=== PATIENT | male | born 1980 | race African-American/Black ===

== ENCOUNTER 2020-10-23 11:39 | Inpatient (IN) | payer OTHER ==
[2020-10-23 13:15] VITALS: BMI 25.7
[2020-10-23] MEDS ORDERED: ACETAMINOPHEN 325 MG TABLET (FP) PO PRN (17:55)
[2020-10-23] MEDS ORDERED: MAGNESIUM CITRATE 300 ML BOTTLE PO PRN (17:55)
[2020-10-23] MEDS ORDERED: LOPERAMIDE HCL 2 MG CAPSULE PO PRN (17:55)
[2020-10-23] MEDS ORDERED: IBUPROFEN 400 MG TABLET (FP) PO PRN (17:55)
[2020-10-23] MEDS ORDERED: P-EPHED 60MG/TRIPROLIDI 2.5MG TABLET PO PRN (17:55)
[2020-10-23] MEDS ORDERED: NICOTINE POLACRILEX 2 MG GUM BC PRN (17:55)
[2020-10-23] MEDS ORDERED: MAGNESIUM HYDROX 2400MG/30ML ORAL SUSPENSION 30 ML CUP PO PRN (17:55)
[2020-10-23] MEDS ORDERED: guaiFENesin 200 MG/10 ML 10 ML UNIT-DOSE CUPS PO PRN (17:55)
[2020-10-23] MEDS ORDERED: MAG HYDROX/AL HYDROX/SIMETH 30 ML UNIT-DOSE CUP PO PRN (17:55)
[2020-10-23] MEDS: MELATONIN 5 MG TABLETS PO SCH (22:14)
[2020-10-23] MEDS: ALBUTEROL SO4 HFA INHALER IH SCH (22:14)
[2020-10-23] MEDS: THIAMINE HCL 100 MG TABLET (FP) PO SCH (22:14)
[2020-10-24] MEDS: ALBUTEROL SO4 HFA INHALER IH SCH ×3 (03:30→15:07)
[2020-10-24] MEDS ORDERED: METHADONE HCL 40 MG DISPERSABLE TABLET PO ONE (08:55)
[2020-10-24] MEDS: PRENATAL VITAMINS W/ FOLIC ACID TABLET (FP) PO SCH (09:15)
[2020-10-24] MEDS: NICOTINE 14 MG/24 HOURS TOPICAL PATCH TD SCH (09:15)
[2020-10-24 09:32] LABS: HEMATOCRIT 37.2 % (35.4-49); HEMOGLOBIN 12.1 GM/dL (11.7-16.9); MCH 25.9 pg (25.7-33.7); MCHC 32.6 g/dl (32.0-35.9); MEAN CELL VOLUME 79.5 fl (80-96); MEAN PLT VOLUME 8.1 fl (7.5-11.1); PLATELET COUNT 328 K/MM3 (134-434); RBC 4.68 M/mm3 (4.00-5.60); WHITE BLOOD COUNT 5.3 K/mm3 (4.0-10.0)
[2020-10-24 10:02] LABS: BLOOD UREA NITROGEN 14.9 mg/dL (7-18)
[2020-10-24 10:05] LABS: ALBUMIN 3.6 g/dl (3.4-5.0); CALCIUM 9.3 mg/dL (8.5-10.1)
[2020-10-24 10:08] LABS: BILIRUBIN,TOTAL 0.2 mg/dL (0.2-1); CREATININE 1.1 mg/dL (0.55-1.3)
[2020-10-24 10:12] LABS: TOT PROT 7.5 g/dl (6.4-8.2)
[2020-10-24] MEDS ORDERED: hydrOXYzine PAMOATE 25 MG CAPSULE (FP) PO PRN (15:04)
[2020-10-24] MEDS: THIAMINE HCL 100 MG TABLET (FP) PO SCH (21:55)
[2020-10-24] MEDS: MELATONIN 5 MG TABLETS PO SCH (21:55)
[2020-10-25] MEDS: METHADONE HCL 40 MG DISPERSABLE TABLET PO SCH (06:44)
[2020-10-25] MEDS: PRENATAL VITAMINS W/ FOLIC ACID TABLET (FP) PO SCH (09:38)
[2020-10-25] MEDS: NICOTINE 14 MG/24 HOURS TOPICAL PATCH TD SCH (09:38)
[2020-10-25] MEDS: ALBUTEROL SO4 HFA INHALER IH PRN (14:07)
[2020-10-25] MEDS: busPIRone HCL 5 MG TABLET PO SCH ×2 (14:07→21:09)
[2020-10-25 16:49] LABS: PH,URINE 6.5 (5.0-8.0); URINE APPEARANCE CLEAR; URINE BILIRUBIN NEGATIVE (NEGATIVE); URINE COLOR YELLOW; URINE GLUCOSE (UA) NEGATIVE (NEGATIVE); URINE KETONE NEGATIVE (NEGATIVE); URINE LEUK ESTERASE NEGATIVE (NEGATIVE); URINE NITRITE NEGATIVE (NEGATIVE); URINE PROTEIN NEGATIVE (NEGATIVE)
[2020-10-25] MEDS: hydrOXYzine PAMOATE 25 MG CAPSULE (FP) PO PRN (17:23)
[2020-10-25] MEDS: traZODone HCL 50 MG TABLET (FP) PO SCH (21:09)
[2020-10-25] MEDS: THIAMINE HCL 100 MG TABLET (FP) PO SCH (21:09)
[2020-10-26] MEDS: METHADONE HCL 40 MG DISPERSABLE TABLET PO SCH (07:06)
[2020-10-26] MEDS: busPIRone HCL 5 MG TABLET PO SCH ×3 (07:06→21:16)
[2020-10-26] MEDS: NICOTINE 14 MG/24 HOURS TOPICAL PATCH TD SCH (10:20)
[2020-10-26] MEDS: PRENATAL VITAMINS W/ FOLIC ACID TABLET (FP) PO SCH (10:20)
[2020-10-26] MEDS: ALBUTEROL SO4 HFA INHALER IH PRN (12:40)
[2020-10-26] MEDS: hydrOXYzine PAMOATE 25 MG CAPSULE (FP) PO PRN (21:16)
[2020-10-26] MEDS: traZODone HCL 50 MG TABLET (FP) PO SCH (21:16)
[2020-10-26] MEDS: THIAMINE HCL 100 MG TABLET (FP) PO SCH (21:16)
[2020-10-27] MEDS: ALBUTEROL SO4 HFA INHALER IH PRN (06:55)
[2020-10-27] MEDS: METHADONE HCL 40 MG DISPERSABLE TABLET PO SCH (06:55)
[2020-10-27] MEDS: busPIRone HCL 5 MG TABLET PO SCH (06:56)
[2020-10-27 07:02] VITALS: BP 117/75; PULSE 66; TEMP 97.5
[2020-10-27] MEDS: PRENATAL VITAMINS W/ FOLIC ACID TABLET (FP) PO SCH (09:27)
[2020-10-27] MEDS: NICOTINE 14 MG/24 HOURS TOPICAL PATCH TD SCH (09:28)
[2020-10-27] MEDS: hydrOXYzine PAMOATE 25 MG CAPSULE (FP) PO PRN (09:28)
== END 2020-10-27 13:45 | disposition left against medical advice (07) | DRG 770 ==
LOC: YASAS 11:39 → Y5N 18:18
PROVIDERS: ADMIT Allergy & Immunology; ATTEND Allergy & Immunology
PROC: HZ42ZZZ Group Counseling for Substance Abuse Treatment, Cognitive-Behavioral (ICD-10-PCS; principal; 2020-10-23)
DX: F10.20 Alcohol dependence, uncomplicated (principal); F11.20 Opioid dependence, uncomplicated; F14.20 Cocaine dependence, uncomplicated; F12.20 Cannabis dependence, uncomplicated; F13.10 Sedative, hypnotic or anxiolytic abuse, uncomplicated; F17.210 Nicotine dependence, cigarettes, uncomplicated; F19.282 Other psychoactive substance dependence with psychoactive substance-induced sleep disorder; F19.24 Other psychoactive substance dependence with psychoactive substance-induced mood disorder; J45.20 Mild intermittent asthma, uncomplicated; Z91.5 Personal history of self-harm; Z56.0 Unemployment, unspecified
CPT/HCPCS: 36415; 80053; 81003; 85027; 86780; 93005; 93010; C9803; U0003; U0005

== ENCOUNTER 2020-12-15 08:47 | Inpatient (IN) | payer OTHER ==
[2020-12-15 09:33] VITALS: BMI 22.6
[2020-12-15] MEDS ORDERED: IBUPROFEN 400 MG TABLET (FP) PO PRN (10:55)
[2020-12-15] MEDS ORDERED: NICOTINE POLACRILEX 2 MG GUM BUC PRN (10:55)
[2020-12-15] MEDS ORDERED: BISMUTH SUBSALICYLATE 262 MG/15 ML BTL PO PRN (10:55)
[2020-12-15] MEDS ORDERED: cloNIDine HCL 0.1 MG TABLET PO PRN (10:55)
[2020-12-15] MEDS ORDERED: MAG HYDROX/AL HYDROX/SIMETH 30 ML UNIT-DOSE CUP PO PRN (10:55)
[2020-12-15] MEDS ORDERED: METHADONE HCL 10 MG TABLET (FOR DETOX USE ONLY) PO ONE (10:55)
[2020-12-15] MEDS ORDERED: ACETAMINOPHEN 325 MG TABLET (FP) PO PRN ×2 (10:55)
[2020-12-15] MEDS ORDERED: MENTHOL/PHENOL 1 EACH UD MM PRN (10:55)
[2020-12-15] MEDS ORDERED: MAGNESIUM HYDROX 2400MG/30ML ORAL SUSPENSION 30 ML CUP PO PRN (10:55)
[2020-12-15] MEDS ORDERED: MAGNESIUM CITRATE 300 ML BOTTLE PO PRN (10:55)
[2020-12-15] MEDS ORDERED: ONDANSETRON *ODT* 4 MG TABLET SL PRN (10:55)
[2020-12-15] MEDS: NICOTINE 7 MG/24 HOURS TOPICAL PATCH TD SCH (13:22)
[2020-12-15] MEDS: PRENATAL VITAMINS W/ FOLIC ACID TABLET (FP) PO SCH (13:23)
[2020-12-15] MEDS: ALBUTEROL SO4 HFA INHALER IH SCH ×3 (13:23→22:35)
[2020-12-15] MEDS: hydrOXYzine PAMOATE 25 MG CAPSULE (FP) PO SCH ×3 (13:28→22:35)
[2020-12-15] MEDS ORDERED: MELATONIN 5 MG TABLETS PO SCH (22:00)
[2020-12-15] MEDS: QUEtiapine FUMARATE 50 MG TABLET PO SCH (22:35)
[2020-12-15] MEDS: THIAMINE HCL 100 MG TABLET (FP) PO SCH (22:35)
[2020-12-16] MEDS: ALBUTEROL SO4 HFA INHALER IH SCH ×4 (05:56→23:59)
[2020-12-16] MEDS: hydrOXYzine PAMOATE 25 MG CAPSULE (FP) PO SCH ×4 (05:57→18:05)
[2020-12-16] MEDS ORDERED: METHADONE HCL 5 MG TABLET (FOR DETOX USE ONLY) ONE (09:22)
[2020-12-16] MEDS ORDERED: METHADONE HCL 10 MG TABLET (FOR DETOX USE ONLY) ONE (09:23)
[2020-12-16] MEDS ORDERED: METHADONE (DETOX) 20 MG, METHADONE (DETOX) 5 MG PO ONE (10:00)
[2020-12-16] MEDS: PRENATAL VITAMINS W/ FOLIC ACID TABLET (FP) PO SCH (10:52)
[2020-12-16] MEDS: NICOTINE 7 MG/24 HOURS TOPICAL PATCH TD SCH (10:53)
[2020-12-16] MEDS: METHOCARBAMOL 500 MG TABLET PO PRN (18:04)
[2020-12-16] MEDS: QUEtiapine FUMARATE 50 MG TABLET PO SCH (23:59)
[2020-12-17] MEDS: THIAMINE HCL 100 MG TABLET (FP) PO SCH
[2020-12-17] MEDS: ALBUTEROL SO4 HFA INHALER IH SCH ×3 (06:44→17:11)
[2020-12-17] MEDS: hydrOXYzine PAMOATE 25 MG CAPSULE (FP) PO SCH ×5 (06:44→17:11)
[2020-12-17] MEDS ORDERED: METHADONE HCL 10 MG TABLET (FOR DETOX USE ONLY) PO ONE (10:00)
[2020-12-17] MEDS: PRENATAL VITAMINS W/ FOLIC ACID TABLET (FP) PO SCH (10:11)
[2020-12-17] MEDS: NICOTINE 7 MG/24 HOURS TOPICAL PATCH TD SCH (10:12)
[2020-12-17] MEDS: METHOCARBAMOL 500 MG TABLET PO PRN (10:13)
[2020-12-17] MEDS: GABAPENTIN 100 MG CAPSULE PO SCH (15:39)
[2020-12-18] MEDS: THIAMINE HCL 100 MG TABLET (FP) PO SCH ×2 (00:05→22:54)
[2020-12-18] MEDS: hydrOXYzine PAMOATE 25 MG CAPSULE (FP) PO SCH ×6 (00:05→22:54)
[2020-12-18] MEDS: ALBUTEROL SO4 HFA INHALER IH SCH ×5 (00:05→23:13)
[2020-12-18] MEDS: QUEtiapine FUMARATE 50 MG TABLET PO SCH ×2 (00:05→22:54)
[2020-12-18] MEDS: METHOCARBAMOL 500 MG TABLET PO PRN ×3 (01:34→22:57)
[2020-12-18] MEDS ORDERED: METHADONE HCL 10 MG TABLET (FOR DETOX USE ONLY) ONE (09:02)
[2020-12-18] MEDS ORDERED: METHADONE HCL 5 MG TABLET (FOR DETOX USE ONLY) ONE (09:02)
[2020-12-18] MEDS ORDERED: METHADONE (DETOX) 10 MG, METHADONE (DETOX) 5 MG PO ONE (10:00)
[2020-12-18] MEDS: PRENATAL VITAMINS W/ FOLIC ACID TABLET (FP) PO SCH (10:27)
[2020-12-18] MEDS: BACITRACIN 0.9 GM PACKET TP SCH (10:27)
[2020-12-18] MEDS: GABAPENTIN 100 MG CAPSULE PO SCH ×2 (10:27→15:22)
[2020-12-18] MEDS: NICOTINE 7 MG/24 HOURS TOPICAL PATCH TD SCH (10:31)
[2020-12-18] MEDS: VITAMINS A AND D TOPICAL OINTMENT 60 GM TUBE TP SCH (15:22)
[2020-12-18] MEDS: CLOTRIMAZOLE 1% CREAM 15 GM TUBE TP SCH (22:55)
[2020-12-19] MEDS: ALBUTEROL SO4 HFA INHALER IH SCH ×4 (07:01→22:35)
[2020-12-19] MEDS: hydrOXYzine PAMOATE 25 MG CAPSULE (FP) PO SCH ×5 (07:01→22:34)
[2020-12-19] MEDS ORDERED: METHADONE HCL 10 MG TABLET (FOR DETOX USE ONLY) PO ONE (10:00)
[2020-12-19] MEDS: NICOTINE 7 MG/24 HOURS TOPICAL PATCH TD SCH (10:07)
[2020-12-19] MEDS: BACITRACIN 0.9 GM PACKET TP SCH (10:07)
[2020-12-19] MEDS: GABAPENTIN 100 MG CAPSULE PO SCH ×2 (10:07→17:34)
[2020-12-19] MEDS: CLOTRIMAZOLE 1% CREAM 15 GM TUBE TP SCH ×2 (10:08→22:35)
[2020-12-19] MEDS: VITAMINS A AND D TOPICAL OINTMENT 60 GM TUBE TP SCH (10:08)
[2020-12-19] MEDS: PRENATAL VITAMINS W/ FOLIC ACID TABLET (FP) PO SCH (10:09)
[2020-12-19] MEDS: METHOCARBAMOL 500 MG TABLET PO PRN ×2 (10:10→22:35)
[2020-12-19 11:38] LABS: HEMATOCRIT 40.7 % (35.4-49); HEMOGLOBIN 13.4 GM/dL (11.7-16.9); MCHC 32.8 g/dl (32.0-35.9); MEAN CELL VOLUME 79.2 fl (80-96); MEAN PLT VOLUME 7.1 fl (7.5-11.1); PLATELET COUNT 473 K/MM3 (134-434); RBC 5.14 M/mm3 (4.00-5.60); RDW 14.3 % (11.9-15.9); WHITE BLOOD COUNT 4.5 K/mm3 (4.0-10.0)
[2020-12-19] MEDS: THIAMINE HCL 100 MG TABLET (FP) PO SCH (22:34)
[2020-12-19] MEDS: QUEtiapine FUMARATE 50 MG TABLET PO SCH (22:35)
[2020-12-20 00:12] LABS: ALBUMIN 3.9 g/dl (3.4-5.0); BLOOD UREA NITROGEN 13.2 mg/dL (7-18); CALCIUM 9.8 mg/dL (8.5-10.1)
[2020-12-20 00:16] LABS: CREATININE 1.1 mg/dL (0.55-1.3)
[2020-12-20 00:17] LABS: BILIRUBIN,TOTAL 0.2 mg/dL (0.2-1); TOT PROT 7.8 g/dl (6.4-8.2)
[2020-12-20] MEDS: hydrOXYzine PAMOATE 25 MG CAPSULE (FP) PO SCH ×2 (06:18→06:43)
[2020-12-20] MEDS: METHADONE HCL 5 MG TABLET (FOR DETOX USE ONLY) PO ONE ×3 (06:18→07:34)
[2020-12-20] MEDS: ALBUTEROL SO4 HFA INHALER IH SCH (06:18)
[2020-12-20] MEDS: METHOCARBAMOL 500 MG TABLET PO PRN (06:48)
[2020-12-20 09:40] VITALS: BP 118/71; PULSE 92; TEMP 97.3
== END 2020-12-20 09:40 | disposition other institution (70) | DRG 773 ==
LOC: YASAS 08:47 → Y6N 12:13
PROVIDERS: ADMIT Allergy & Immunology; ATTEND Allergy & Immunology
PROC: HZ2ZZZZ Detoxification Services for Substance Abuse Treatment (ICD-10-PCS; principal; 2020-12-15)
DX: F11.23 Opioid dependence with withdrawal (principal); F10.230 Alcohol dependence with withdrawal, uncomplicated; F14.20 Cocaine dependence, uncomplicated; F12.20 Cannabis dependence, uncomplicated; F17.210 Nicotine dependence, cigarettes, uncomplicated; F19.282 Other psychoactive substance dependence with psychoactive substance-induced sleep disorder; F19.280 Other psychoactive substance dependence with psychoactive substance-induced anxiety disorder; F19.24 Other psychoactive substance dependence with psychoactive substance-induced mood disorder; J45.20 Mild intermittent asthma, uncomplicated; S01.01XD Laceration without foreign body of scalp, subsequent encounter; T81.30XD Disruption of wound, unspecified, subsequent encounter; W19.XXXD Unspecified fall, subsequent encounter; Z91.5 Personal history of self-harm; Z59.0 Homelessness
CPT/HCPCS: 36415; 80053; 85027; 86780; C9803; U0003; U0005

== ENCOUNTER 2020-12-17 21:20 | Emergency (ER) | payer OTHER ==
[2020-12-17 21:40] VITALS: BP 138/77; PULSE 83; TEMP 98.6; BMI 23.6
[2020-12-17] MEDS ORDERED: BACITRACIN 15 GM TUBE TOPICAL OINTMENT TP ONE (22:36)
[2020-12-17] MEDS ORDERED: BACITRACIN 0.9 GM PACKET ONE (22:45)
== END 2020-12-18 01:00 ==
LOC: JER 21:20
DX: T81.31XA Disruption of external operation (surgical) wound, not elsewhere classified, initial encounter (principal)
CPT/HCPCS: 99283-25

== ENCOUNTER 2021-01-19 11:54 | Inpatient (IN) | payer OTHER ==
[2021-01-19 14:34] VITALS: BMI 24.7
[2021-01-19] MEDS ORDERED: MAG HYDROX/AL HYDROX/SIMETH 30 ML UNIT-DOSE CUP PO PRN (18:15)
[2021-01-19] MEDS ORDERED: LOPERAMIDE HCL 2 MG CAPSULE PO PRN (18:15)
[2021-01-19] MEDS ORDERED: P-EPHED 60MG/TRIPROLIDI 2.5MG TABLET PO PRN (18:15)
[2021-01-19] MEDS ORDERED: MAGNESIUM HYDROX 2400MG/30ML ORAL SUSPENSION 30 ML CUP PO PRN (18:15)
[2021-01-19] MEDS ORDERED: guaiFENesin 200 MG/10 ML 10 ML UNIT-DOSE CUPS PO PRN (18:15)
[2021-01-19] MEDS ORDERED: NICOTINE POLACRILEX 2 MG GUM BC PRN (18:15)
[2021-01-19] MEDS ORDERED: MAGNESIUM CITRATE 300 ML BOTTLE PO PRN (18:15)
[2021-01-19] MEDS ORDERED: ALBUTEROL SO4 HFA INHALER IH PRN (18:17)
[2021-01-19] MEDS: NICOTINE 7 MG/24 HOURS TOPICAL PATCH TD SCH (19:32)
[2021-01-19] MEDS: PRENATAL VITAMINS W/ FOLIC ACID TABLET (FP) PO SCH (19:35)
[2021-01-19] MEDS: BACITRACIN 15 GM TUBE TOPICAL OINTMENT TP SCH (21:54)
[2021-01-19] MEDS: BUPRENORPHINE/NALOXONE 4 MG/1 MG FILM PACKET SL SCH ×3 (21:55→22:28)
[2021-01-19] MEDS: THIAMINE HCL 100 MG TABLET (FP) PO SCH (22:12)
[2021-01-19] MEDS: hydrOXYzine PAMOATE 25 MG CAPSULE (FP) PO SCH (22:12)
[2021-01-19] MEDS: MELATONIN 5 MG TABLETS PO SCH (22:30)
[2021-01-20] MEDS: hydrOXYzine PAMOATE 25 MG CAPSULE (FP) PO SCH ×5 (07:14→21:50)
[2021-01-20 08:56] LABS: HEMATOCRIT 39.9 % (35.4-49); HEMOGLOBIN 13.1 GM/dL (11.7-16.9); MCH 25.6 pg (25.7-33.7); MCHC 32.7 g/dl (32.0-35.9); MEAN CELL VOLUME 78.1 fl (80-96); MEAN PLT VOLUME 6.7 fl (7.5-11.1); PLATELET COUNT 401 10^3/uL (134-434); RDW 15.3 % (11.9-15.9); WHITE BLOOD COUNT 5.9 K/mm3 (4.0-10.0)
[2021-01-20 09:25] LABS: BLOOD UREA NITROGEN 12.8 mg/dL (7-18); CALCIUM 9.3 mg/dL (8.5-10.1)
[2021-01-20 09:26] LABS: ALBUMIN 3.9 g/dl (3.4-5.0)
[2021-01-20 09:30] LABS: BILIRUBIN,TOTAL 0.6 mg/dL (0.2-1); TOT PROT 7.6 g/dl (6.4-8.2)
[2021-01-20] MEDS: PRENATAL VITAMINS W/ FOLIC ACID TABLET (FP) PO SCH (09:30)
[2021-01-20] MEDS: BUPRENORPHINE/NALOXONE 4 MG/1 MG FILM PACKET SL SCH ×2 (09:32→22:02)
[2021-01-20] MEDS: NICOTINE 7 MG/24 HOURS TOPICAL PATCH TD SCH (09:32)
[2021-01-20] MEDS: BACITRACIN 15 GM TUBE TOPICAL OINTMENT TP SCH (09:32)
[2021-01-20 10:13] LABS: HIV INTERPRETATION NEGATIVE (NEGATIVE)
[2021-01-20] MEDS: MELATONIN 5 MG TABLETS PO SCH (21:50)
[2021-01-20] MEDS: THIAMINE HCL 100 MG TABLET (FP) PO SCH (21:51)
[2021-01-20] MEDS: ACETAMINOPHEN 325 MG TABLET (FP) PO PRN (21:53)
[2021-01-21] MEDS: hydrOXYzine PAMOATE 25 MG CAPSULE (FP) PO SCH ×5 (06:29→21:22)
[2021-01-21] MEDS: PRENATAL VITAMINS W/ FOLIC ACID TABLET (FP) PO SCH (10:01)
[2021-01-21] MEDS: NICOTINE 7 MG/24 HOURS TOPICAL PATCH TD SCH (10:01)
[2021-01-21] MEDS: BUPRENORPHINE/NALOXONE 4 MG/1 MG FILM PACKET SL SCH ×2 (10:02→21:24)
[2021-01-21] MEDS: BACITRACIN 15 GM TUBE TOPICAL OINTMENT TP SCH (10:02)
[2021-01-21] MEDS ORDERED: MASKS NR ONE (16:19)
[2021-01-21] MEDS: MELATONIN 5 MG TABLETS PO SCH (21:22)
[2021-01-21] MEDS: THIAMINE HCL 100 MG TABLET (FP) PO SCH (21:22)
[2021-01-22] MEDS: hydrOXYzine PAMOATE 25 MG CAPSULE (FP) PO SCH ×5 (06:22→23:09)
[2021-01-22] MEDS: PRENATAL VITAMINS W/ FOLIC ACID TABLET (FP) PO SCH (09:55)
[2021-01-22] MEDS: BACITRACIN 15 GM TUBE TOPICAL OINTMENT TP SCH (09:56)
[2021-01-22] MEDS: NICOTINE 7 MG/24 HOURS TOPICAL PATCH TD SCH (09:57)
[2021-01-22] MEDS: BUPRENORPHINE/NALOXONE 4 MG/1 MG FILM PACKET SL SCH ×2 (09:57→23:09)
[2021-01-22] MEDS: THIAMINE HCL 100 MG TABLET (FP) PO SCH (23:09)
[2021-01-22] MEDS: MELATONIN 5 MG TABLETS PO SCH (23:09)
[2021-01-23] MEDS: hydrOXYzine PAMOATE 25 MG CAPSULE (FP) PO SCH ×5 (06:00→21:27)
[2021-01-23] MEDS: PRENATAL VITAMINS W/ FOLIC ACID TABLET (FP) PO SCH (10:01)
[2021-01-23] MEDS: NICOTINE 7 MG/24 HOURS TOPICAL PATCH TD SCH (10:01)
[2021-01-23] MEDS: BUPRENORPHINE/NALOXONE 4 MG/1 MG FILM PACKET SL SCH ×2 (10:02→21:25)
[2021-01-23] MEDS: BACITRACIN 15 GM TUBE TOPICAL OINTMENT TP SCH (10:03)
[2021-01-23] MEDS: QUEtiapine FUMARATE 100 MG TABLET (FP) PO SCH (21:27)
[2021-01-23] MEDS: THIAMINE HCL 100 MG TABLET (FP) PO SCH (21:27)
[2021-01-23] MEDS: MELATONIN 5 MG TABLETS PO SCH (21:27)
[2021-01-24] MEDS: hydrOXYzine PAMOATE 25 MG CAPSULE (FP) PO SCH ×2 (07:10→10:23)
[2021-01-24] MEDS: PRENATAL VITAMINS W/ FOLIC ACID TABLET (FP) PO SCH (10:17)
[2021-01-24] MEDS: NICOTINE 7 MG/24 HOURS TOPICAL PATCH TD SCH (10:17)
[2021-01-24] MEDS: BACITRACIN 0.9 GM PACKET TP SCH (10:19)
[2021-01-24] MEDS: BUPRENORPHINE/NALOXONE 4 MG/1 MG FILM PACKET SL SCH ×2 (10:20→21:29)
[2021-01-24] MEDS: hydrOXYzine PAMOATE 25 MG CAPSULE (FP) PO PRN ×2 (13:58→21:28)
[2021-01-24 17:03] LABS: PH,URINE 5.5 (5.0-8.0); URINE APPEARANCE CLEAR; URINE BILIRUBIN NEGATIVE (NEGATIVE); URINE COLOR YELLOW; URINE GLUCOSE (UA) NEGATIVE (NEGATIVE); URINE KETONE TRACE (NEGATIVE); URINE LEUK ESTERASE NEGATIVE (NEGATIVE); URINE NITRITE NEGATIVE (NEGATIVE); URINE PROTEIN NEGATIVE (NEGATIVE); URINE UROBILINOGEN 0.2 mg/dL (0.2-1.0)
[2021-01-24] MEDS: QUEtiapine FUMARATE 100 MG TABLET (FP) PO SCH (21:27)
[2021-01-24] MEDS: THIAMINE HCL 100 MG TABLET (FP) PO SCH (21:28)
[2021-01-24] MEDS: MELATONIN 5 MG TABLETS PO SCH (21:29)
[2021-01-25] MEDS: IBUPROFEN 400 MG TABLET (FP) PO PRN (02:27)
[2021-01-25] MEDS: hydrOXYzine PAMOATE 25 MG CAPSULE (FP) PO PRN ×3 (06:25→21:56)
[2021-01-25] MEDS ORDERED: PT OWN MED DRAWER 7, Y5N ONE (09:44)
[2021-01-25] MEDS: BACITRACIN 0.9 GM PACKET TP SCH (10:16)
[2021-01-25] MEDS: PRENATAL VITAMINS W/ FOLIC ACID TABLET (FP) PO SCH (10:16)
[2021-01-25] MEDS: BUPRENORPHINE/NALOXONE 4 MG/1 MG FILM PACKET SL SCH ×2 (10:17→21:55)
[2021-01-25] MEDS: NICOTINE 7 MG/24 HOURS TOPICAL PATCH TD SCH (10:17)
[2021-01-25] MEDS: MELATONIN 5 MG TABLETS PO SCH (21:55)
[2021-01-25] MEDS: THIAMINE HCL 100 MG TABLET (FP) PO SCH (21:55)
[2021-01-25] MEDS: QUEtiapine FUMARATE 100 MG TABLET (FP) PO SCH (21:55)
[2021-01-26] MEDS: PRENATAL VITAMINS W/ FOLIC ACID TABLET (FP) PO SCH (10:15)
[2021-01-26] MEDS: NICOTINE 7 MG/24 HOURS TOPICAL PATCH TD SCH (10:16)
[2021-01-26] MEDS: BACITRACIN 0.9 GM PACKET TP SCH (10:16)
[2021-01-26] MEDS: BUPRENORPHINE/NALOXONE 4 MG/1 MG FILM PACKET SL SCH ×2 (10:16→22:08)
[2021-01-26] MEDS: hydrOXYzine PAMOATE 25 MG CAPSULE (FP) PO PRN ×3 (10:16→19:18)
[2021-01-26] MEDS: THIAMINE HCL 100 MG TABLET (FP) PO SCH (22:06)
[2021-01-26] MEDS: QUEtiapine FUMARATE 100 MG TABLET (FP) PO SCH (22:07)
[2021-01-26] MEDS: MELATONIN 5 MG TABLETS PO SCH (22:07)
[2021-01-27] MEDS: hydrOXYzine PAMOATE 25 MG CAPSULE (FP) PO PRN ×3 (06:34→21:25)
[2021-01-27] MEDS: BACITRACIN 0.9 GM PACKET TP SCH (09:57)
[2021-01-27] MEDS: PRENATAL VITAMINS W/ FOLIC ACID TABLET (FP) PO SCH (09:57)
[2021-01-27] MEDS: NICOTINE 7 MG/24 HOURS TOPICAL PATCH TD SCH (09:57)
[2021-01-27] MEDS: BUPRENORPHINE/NALOXONE 4 MG/1 MG FILM PACKET SL SCH ×2 (09:58→21:25)
[2021-01-27] MEDS: MELATONIN 5 MG TABLETS PO SCH (21:23)
[2021-01-27] MEDS: QUEtiapine FUMARATE 100 MG TABLET (FP) PO SCH (21:23)
[2021-01-27] MEDS: THIAMINE HCL 100 MG TABLET (FP) PO SCH (21:23)
[2021-01-28] MEDS: BACITRACIN 0.9 GM PACKET TP SCH (09:59)
[2021-01-28] MEDS: PRENATAL VITAMINS W/ FOLIC ACID TABLET (FP) PO SCH (09:59)
[2021-01-28] MEDS: NICOTINE 7 MG/24 HOURS TOPICAL PATCH TD SCH (09:59)
[2021-01-28] MEDS: BUPRENORPHINE/NALOXONE 4 MG/1 MG FILM PACKET SL SCH ×2 (10:00→21:25)
[2021-01-28] MEDS: hydrOXYzine PAMOATE 25 MG CAPSULE (FP) PO PRN ×2 (10:00→21:23)
[2021-01-28] MEDS: QUEtiapine FUMARATE 100 MG TABLET (FP) PO SCH (21:23)
[2021-01-28] MEDS: MELATONIN 5 MG TABLETS PO SCH (21:23)
[2021-01-28] MEDS: THIAMINE HCL 100 MG TABLET (FP) PO SCH (21:23)
[2021-01-28] MEDS: IBUPROFEN 400 MG TABLET (FP) PO PRN (21:24)
[2021-01-29] MEDS: NICOTINE 7 MG/24 HOURS TOPICAL PATCH TD SCH (10:22)
[2021-01-29] MEDS: BACITRACIN 0.9 GM PACKET TP SCH (10:22)
[2021-01-29] MEDS: PRENATAL VITAMINS W/ FOLIC ACID TABLET (FP) PO SCH (10:22)
[2021-01-29] MEDS: BUPRENORPHINE/NALOXONE 4 MG/1 MG FILM PACKET SL SCH ×2 (10:22→21:29)
[2021-01-29] MEDS: IBUPROFEN 400 MG TABLET (FP) PO PRN (10:24)
[2021-01-29] MEDS: hydrOXYzine PAMOATE 25 MG CAPSULE (FP) PO PRN ×2 (10:24→21:29)
[2021-01-29] MEDS: MELATONIN 5 MG TABLETS PO SCH (21:28)
[2021-01-29] MEDS: QUEtiapine FUMARATE 100 MG TABLET (FP) PO SCH (21:29)
[2021-01-29] MEDS: THIAMINE HCL 100 MG TABLET (FP) PO SCH (21:29)
[2021-01-30] MEDS: PRENATAL VITAMINS W/ FOLIC ACID TABLET (FP) PO SCH (10:03)
[2021-01-30] MEDS: BUPRENORPHINE/NALOXONE 4 MG/1 MG FILM PACKET SL SCH ×2 (10:03→21:29)
[2021-01-30] MEDS: NICOTINE 7 MG/24 HOURS TOPICAL PATCH TD SCH (10:03)
[2021-01-30] MEDS: BACITRACIN 0.9 GM PACKET TP SCH (10:04)
[2021-01-30] MEDS: hydrOXYzine PAMOATE 25 MG CAPSULE (FP) PO PRN ×3 (10:04→21:28)
[2021-01-30] MEDS: MELATONIN 5 MG TABLETS PO SCH (21:28)
[2021-01-30] MEDS: QUEtiapine FUMARATE 100 MG TABLET (FP) PO SCH (21:28)
[2021-01-30] MEDS: THIAMINE HCL 100 MG TABLET (FP) PO SCH (21:28)
[2021-01-31] MEDS: BACITRACIN 0.9 GM PACKET TP SCH (10:06)
[2021-01-31] MEDS: BUPRENORPHINE/NALOXONE 4 MG/1 MG FILM PACKET SL SCH ×2 (10:06→21:29)
[2021-01-31] MEDS: hydrOXYzine PAMOATE 25 MG CAPSULE (FP) PO PRN ×2 (10:06→21:29)
[2021-01-31] MEDS: PRENATAL VITAMINS W/ FOLIC ACID TABLET (FP) PO SCH (10:06)
[2021-01-31] MEDS: NICOTINE 7 MG/24 HOURS TOPICAL PATCH TD SCH (10:06)
[2021-01-31] MEDS: THIAMINE HCL 100 MG TABLET (FP) PO SCH (21:29)
[2021-01-31] MEDS: QUEtiapine FUMARATE 100 MG TABLET (FP) PO SCH (21:29)
[2021-01-31] MEDS: MELATONIN 5 MG TABLETS PO SCH (21:29)
[2021-02-01] MEDS: BACITRACIN 0.9 GM PACKET TP SCH (10:02)
[2021-02-01] MEDS: BUPRENORPHINE/NALOXONE 4 MG/1 MG FILM PACKET SL SCH ×2 (10:02→21:42)
[2021-02-01] MEDS: PRENATAL VITAMINS W/ FOLIC ACID TABLET (FP) PO SCH (10:02)
[2021-02-01] MEDS: NICOTINE 7 MG/24 HOURS TOPICAL PATCH TD SCH (10:02)
[2021-02-01] MEDS: hydrOXYzine PAMOATE 25 MG CAPSULE (FP) PO PRN ×2 (10:03→21:41)
[2021-02-01] MEDS: ACETAMINOPHEN 325 MG TABLET (FP) PO PRN (16:27)
[2021-02-01] MEDS: THIAMINE HCL 100 MG TABLET (FP) PO SCH (21:41)
[2021-02-01] MEDS: MELATONIN 5 MG TABLETS PO SCH (21:41)
[2021-02-01] MEDS: QUEtiapine FUMARATE 100 MG TABLET (FP) PO SCH (21:41)
[2021-02-02 07:43] VITALS: BP 125/81; PULSE 121; TEMP 96.2
[2021-02-02] MEDS: PRENATAL VITAMINS W/ FOLIC ACID TABLET (FP) PO SCH (09:32)
[2021-02-02] MEDS: BUPRENORPHINE/NALOXONE 4 MG/1 MG FILM PACKET SL SCH (09:32)
[2021-02-02] MEDS: BACITRACIN 0.9 GM PACKET TP SCH (09:32)
[2021-02-02] MEDS: NICOTINE 7 MG/24 HOURS TOPICAL PATCH TD SCH (09:32)
[2021-02-02] MEDS: hydrOXYzine PAMOATE 25 MG CAPSULE (FP) PO PRN (09:33)
== END 2021-02-02 10:05 | disposition home or self-care (01) | DRG 772 ==
LOC: YASAS 11:54 → Y5N 18:49
PROVIDERS: ADMIT Allergy & Immunology; ATTEND Allergy & Immunology
PROC: HZ42ZZZ Group Counseling for Substance Abuse Treatment, Cognitive-Behavioral (ICD-10-PCS; principal; 2021-01-19)
DX: F10.20 Alcohol dependence, uncomplicated (principal); F11.20 Opioid dependence, uncomplicated; F14.20 Cocaine dependence, uncomplicated; F12.20 Cannabis dependence, uncomplicated; F19.20 Other psychoactive substance dependence, uncomplicated; F17.210 Nicotine dependence, cigarettes, uncomplicated; F19.282 Other psychoactive substance dependence with psychoactive substance-induced sleep disorder; F19.280 Other psychoactive substance dependence with psychoactive substance-induced anxiety disorder; J45.909 Unspecified asthma, uncomplicated; Z51.81 Encounter for therapeutic drug level monitoring; Z56.0 Unemployment, unspecified; Z59.0 Homelessness
CPT/HCPCS: 36415; 80053; 81003; 85027; 86780; 87389; C9803; U0003; U0005

== ENCOUNTER 2022-08-10 15:25 | Inpatient (IN) | payer OTHER ==
[2022-08-10 16:32] VITALS: BMI 22.1
[2022-08-10] MEDS ORDERED: METHOCARBAMOL 500 MG TABLET PO PRN (17:03)
[2022-08-10] MEDS ORDERED: DICYCLOMINE HCL 10 MG CAPSULE PO PRN (17:03)
[2022-08-10] MEDS ORDERED: ONDANSETRON *ODT* 4 MG TABLET SL PRN (17:03)
[2022-08-10] MEDS ORDERED: LOPERAMIDE HCL 2 MG CAPSULE PO PRN (17:03)
[2022-08-10] MEDS ORDERED: POLYETHYLENE GLYCOL (HEALTHYLAX) 3350 17 GM PACKET PO PRN (17:03)
[2022-08-10] MEDS ORDERED: IBUPROFEN 400 MG TABLET (FP) PO PRN (17:03)
[2022-08-10] MEDS ORDERED: IBUPROFEN 600 MG TABLET (FP) PO PRN (17:03)
[2022-08-10] MEDS ORDERED: BENZOCAINE/MENTHOL (CHLORASEPTIC ) LOZENGE MM PRN (17:03)
[2022-08-10] MEDS ORDERED: NALOXONE HCL (KLOXXADO) 8 MG SPRAY NS PRN (17:03)
[2022-08-10] MEDS ORDERED: MAGNESIUM HYDROX 2400MG/30ML ORAL SUSPENSION 30 ML CUP PO PRN (17:03)
[2022-08-10] MEDS ORDERED: BISMUTH SUBSALICYLATE 524 MG/30 ML PO PRN (17:03)
[2022-08-10] MEDS ORDERED: ACETAMINOPHEN 325 MG TABLET (FP) PO PRN ×2 (17:03)
[2022-08-10] MEDS ORDERED: chlordiazePOXIDE HCL 25 MG CAPSULE PO PRN (17:03)
[2022-08-10] MEDS ORDERED: NICOTINE 10 MG CARTRIDGE (INHALER) IH PRN (17:03)
[2022-08-10] MEDS ORDERED: ALBUTEROL SO4 2.5/IPRATROPIUM 0.5 INH SOL 3 ML VIAL.NEB. NEB SCH (17:15)
[2022-08-10] MEDS ORDERED: ALBUTEROL SO4 2.5/IPRATROPIUM 0.5 INH SOL 3 ML VIAL.NEB. NEB ONE (18:01)
[2022-08-10] MEDS: chlordiazePOXIDE HCL 25 MG CAPSULE PO SCH (22:49)
[2022-08-10] MEDS: THIAMINE HCL 100 MG TABLET (FP) PO SCH (22:50)
[2022-08-10] MEDS: MELATONIN 5 MG TABLETS PO SCH (22:50)
[2022-08-10] MEDS: ALBUTEROL SO4 HFA INHALER IH PRN (23:02)
[2022-08-11] MEDS: ALBUTEROL SO4 2.5/IPRATROPIUM 0.5 INH SOL 3 ML VIAL.NEB. NEB PRN ×2 (02:00→08:51)
[2022-08-11] MEDS: chlordiazePOXIDE HCL 25 MG CAPSULE PO SCH ×4 (05:05→22:42)
[2022-08-11] MEDS ORDERED: methaDONE HCL 10 MG TABLET (FOR DETOX USE ONLY) PO ONE (08:46)
[2022-08-11] MEDS: MAG HYDROX/AL HYDROX/SIMETH 30 ML UNIT-DOSE CUP PO PRN ×2 (08:55→20:38)
[2022-08-11] MEDS ORDERED: methaDONE HCL 10 MG TABLET PO ONE (10:00)
[2022-08-11] MEDS ORDERED: predniSONE 20 MG TABLET (UD) PO ONE ×2 (10:00)
[2022-08-11] MEDS: NICOTINE 21 MG/24 HOURS TOPICAL PATCH TD SCH (10:33)
[2022-08-11] MEDS: PRENATAL VITAMINS W/ FOLIC ACID TABLET (FP) PO SCH (10:33)
[2022-08-11 11:54] LABS: HEMOGLOBIN 11.8 GM/dL (11.7-16.9); MCH 25.8 pg (25.7-33.7); MCHC 32.9 g/dl (32.0-35.9); MEAN CELL VOLUME 78.4 fl (80-96); MEAN PLT VOLUME 7.8 fl (7.5-11.1); PLATELET COUNT 333 10^3/uL (134-434); RBC 4.59 M/mm3 (4.00-5.60); RDW 14.6 % (11.9-15.9); WHITE BLOOD COUNT 8.6 K/mm3 (4.0-10.0)
[2022-08-11] MEDS ORDERED: FAMOTIDINE 20 MG TABLET PO ONE (12:00)
[2022-08-11 12:09] LABS: ALBUMIN 3.4 g/dl (3.4-5.0)
[2022-08-11 12:10] LABS: BLOOD UREA NITROGEN 20.3 mg/dL (7-18)
[2022-08-11 12:14] LABS: BILIRUBIN,TOTAL 0.2 mg/dL (0.2-1); TOT PROT 6.9 g/dl (6.4-8.2)
[2022-08-11] MEDS: ALBUTEROL SO4 HFA INHALER IH PRN (13:23)
[2022-08-11 13:26] LABS: HIV INTERPRETATION NEGATIVE (NEGATIVE)
[2022-08-11] MEDS: hydrOXYzine PAMOATE 25 MG CAPSULE (FP) PO PRN (17:38)
[2022-08-11] MEDS ORDERED: P-EPHED 60MG/TRIPROLIDI 2.5MG TABLET PO PRN (18:06)
[2022-08-11] MEDS: THIAMINE HCL 100 MG TABLET (FP) PO SCH (22:42)
[2022-08-11] MEDS: MELATONIN 5 MG TABLETS PO SCH ×2 (22:42→23:24)
[2022-08-11] MEDS: MONTELUKAST NA 10 MG TABLET PO SCH (22:44)
[2022-08-11] MEDS: FAMOTIDINE 20 MG TABLET PO SCH (22:44)
[2022-08-11] MEDS: BUDESONIDE/FORMETEROL FUMARATE 160/4.5 mcg INHALER IH SCH (22:45)
[2022-08-11] MEDS: FLUTICASONE PROP 0.05% 16 GM NASAL SPRAY NS SCH ×2 (22:45→23:00)
[2022-08-12] MEDS: chlordiazePOXIDE HCL 25 MG CAPSULE PO SCH ×4 (06:12→22:53)
[2022-08-12] MEDS ORDERED: predniSONE 20 MG TABLET (UD) PO ONE ×2 (10:00)
[2022-08-12] MEDS ORDERED: methaDONE HCL 10 MG TABLET PO ONE (10:34)
[2022-08-12] MEDS: FLUTICASONE PROP 0.05% 16 GM NASAL SPRAY NS SCH ×2 (11:36→22:53)
[2022-08-12] MEDS: FAMOTIDINE 20 MG TABLET PO SCH ×2 (11:36→22:54)
[2022-08-12] MEDS: BUDESONIDE/FORMETEROL FUMARATE 160/4.5 mcg INHALER IH SCH ×2 (11:36→22:54)
[2022-08-12] MEDS: PRENATAL VITAMINS W/ FOLIC ACID TABLET (FP) PO SCH (11:37)
[2022-08-12] MEDS: NICOTINE 21 MG/24 HOURS TOPICAL PATCH TD SCH (11:37)
[2022-08-12] MEDS ORDERED: methaDONE 40 MG, methaDONE 20 MG PO ONE (11:45)
[2022-08-12] MEDS: THIAMINE HCL 100 MG TABLET (FP) PO SCH (22:52)
[2022-08-12] MEDS: MONTELUKAST NA 10 MG TABLET PO SCH (22:52)
[2022-08-12] MEDS: MELATONIN 5 MG TABLETS PO SCH (22:54)
[2022-08-13] MEDS ORDERED: chlordiazePOXIDE HCL 10 MG CAPSULE PO PRN
[2022-08-13] MEDS: methaDONE 40 MG, methaDONE 20 MG PO SCH (05:44)
[2022-08-13] MEDS: chlordiazePOXIDE HCL 10 MG CAPSULE PO SCH ×4 (05:45→22:36)
[2022-08-13] MEDS ORDERED: methaDONE HCL 10 MG TABLET PO SCH (06:00)
[2022-08-13] MEDS ORDERED: predniSONE 10 MG TABLET (UD) PO ONE ×2 (10:00)
[2022-08-13] MEDS ORDERED: methaDONE HCL 10 MG TABLET (FOR DETOX USE ONLY) PO ONE (10:00)
[2022-08-13] MEDS: FLUTICASONE PROP 0.05% 16 GM NASAL SPRAY NS SCH ×2 (10:30→22:44)
[2022-08-13] MEDS: NICOTINE 21 MG/24 HOURS TOPICAL PATCH TD SCH (10:30)
[2022-08-13] MEDS: BUDESONIDE/FORMETEROL FUMARATE 160/4.5 mcg INHALER IH SCH ×2 (10:31→22:37)
[2022-08-13] MEDS: FAMOTIDINE 20 MG TABLET PO SCH ×2 (10:32→22:35)
[2022-08-13] MEDS: PRENATAL VITAMINS W/ FOLIC ACID TABLET (FP) PO SCH (10:33)
[2022-08-13] MEDS: THIAMINE HCL 100 MG TABLET (FP) PO SCH (22:35)
[2022-08-13] MEDS: MELATONIN 5 MG TABLETS PO SCH (22:35)
[2022-08-13] MEDS: MONTELUKAST NA 10 MG TABLET PO SCH (22:35)
[2022-08-13] MEDS: ALBUTEROL SO4 HFA INHALER IH PRN (22:44)
[2022-08-14] MEDS: methaDONE 40 MG, methaDONE 20 MG PO SCH (06:03)
[2022-08-14] MEDS: chlordiazePOXIDE HCL 10 MG CAPSULE PO SCH ×2 (06:03→17:11)
[2022-08-14] MEDS ORDERED: predniSONE 10 MG TABLET (UD) PO ONE (10:00)
[2022-08-14] MEDS: NICOTINE 21 MG/24 HOURS TOPICAL PATCH TD SCH (10:25)
[2022-08-14] MEDS: PRENATAL VITAMINS W/ FOLIC ACID TABLET (FP) PO SCH (10:25)
[2022-08-14] MEDS: FAMOTIDINE 20 MG TABLET PO SCH ×2 (10:25→22:48)
[2022-08-14] MEDS: FLUTICASONE PROP 0.05% 16 GM NASAL SPRAY NS SCH ×2 (10:25→23:10)
[2022-08-14] MEDS: BUDESONIDE/FORMETEROL FUMARATE 160/4.5 mcg INHALER IH SCH ×2 (10:25→22:49)
[2022-08-14] MEDS: hydrOXYzine PAMOATE 25 MG CAPSULE (FP) PO PRN (22:48)
[2022-08-14] MEDS: THIAMINE HCL 100 MG TABLET (FP) PO SCH (22:48)
[2022-08-14] MEDS: MONTELUKAST NA 10 MG TABLET PO SCH (22:48)
[2022-08-14] MEDS: MELATONIN 5 MG TABLETS PO SCH (22:48)
[2022-08-15] MEDS ORDERED: chlordiazePOXIDE HCL 10 MG CAPSULE PO ONE (05:00)
[2022-08-15] MEDS: methaDONE 40 MG, methaDONE 20 MG PO SCH (05:44)
[2022-08-15 09:25] VITALS: RESP 18
[2022-08-15] MEDS ORDERED: predniSONE 20 MG TABLET (UD) PO ONE (10:00)
[2022-08-15] MEDS ORDERED: methaDONE HCL 10 MG TABLET (FOR DETOX USE ONLY) PO ONE (10:00)
[2022-08-15] MEDS: FLUTICASONE PROP 0.05% 16 GM NASAL SPRAY NS SCH (10:23)
[2022-08-15] MEDS: NICOTINE 21 MG/24 HOURS TOPICAL PATCH TD SCH (10:24)
[2022-08-15] MEDS: hydrOXYzine PAMOATE 25 MG CAPSULE (FP) PO PRN (10:25)
[2022-08-15] MEDS: PRENATAL VITAMINS W/ FOLIC ACID TABLET (FP) PO SCH (10:25)
[2022-08-15] MEDS: FAMOTIDINE 20 MG TABLET PO SCH (10:25)
[2022-08-15] MEDS: BUDESONIDE/FORMETEROL FUMARATE 160/4.5 mcg INHALER IH SCH (11:06)
[2022-08-15 16:30] VITALS: BP 97/63; PULSE 79; TEMP 97.1
[2022-08-15] MEDS ORDERED: MIRTAZAPINE 15 MG TABLET (FP) PO SCH (22:00)
[2022-08-16] MEDS ORDERED: predniSONE 10 MG TABLET (UD) PO ONE (06:00)
== END 2022-08-15 16:55 | disposition other institution (70) | DRG 773 ==
LOC: YASAS 15:25 → Y6N 16:59
PROVIDERS: ADMIT Allergy & Immunology; ATTEND Family Medicine
PROC: HZ2ZZZZ Detoxification Services for Substance Abuse Treatment (ICD-10-PCS; principal; 2022-08-10)
DX: F10.230 Alcohol dependence with withdrawal, uncomplicated (principal); F11.20 Opioid dependence, uncomplicated; F14.20 Cocaine dependence, uncomplicated; F12.20 Cannabis dependence, uncomplicated; F17.210 Nicotine dependence, cigarettes, uncomplicated; F19.280 Other psychoactive substance dependence with psychoactive substance-induced anxiety disorder; F19.282 Other psychoactive substance dependence with psychoactive substance-induced sleep disorder; J45.909 Unspecified asthma, uncomplicated; K21.9 Gastro-esophageal reflux disease without esophagitis; Z91.51 Personal history of suicidal behavior
CPT/HCPCS: 36415; 80053; 85027; 86705; 86780; 87389; 87522; 94640; C9803-CS; U0003; U0005

== ENCOUNTER 2022-08-15 17:09 | Inpatient (IN) | payer OTHER ==
[2022-08-15] MEDS ORDERED: MAGNESIUM HYDROX 2400MG/30ML ORAL SUSPENSION 30 ML CUP PO PRN (18:12)
[2022-08-15] MEDS ORDERED: POLYETHYLENE GLYCOL (HEALTHYLAX) 3350 17 GM PACKET PO PRN (18:12)
[2022-08-15] MEDS ORDERED: P-EPHED 60MG/TRIPROLIDI 2.5MG TABLET PO PRN (18:12)
[2022-08-15] MEDS ORDERED: LOPERAMIDE HCL 2 MG CAPSULE PO PRN (18:12)
[2022-08-15] MEDS ORDERED: IBUPROFEN 400 MG TABLET (FP) PO PRN (18:12)
[2022-08-15] MEDS ORDERED: guaiFENesin 200 MG/10 ML 10 ML UNIT-DOSE CUPS PO PRN (18:12)
[2022-08-15] MEDS ORDERED: ACETAMINOPHEN 325 MG TABLET (FP) PO PRN (18:12)
[2022-08-15] MEDS ORDERED: BENZOCAINE/MENTHOL (CHLORASEPTIC ) LOZENGE MM PRN (18:12)
[2022-08-15] MEDS: MELATONIN 5 MG TABLETS PO SCH (23:18)
[2022-08-15] MEDS: MIRTAZAPINE 15 MG TABLET (FP) PO SCH (23:18)
[2022-08-15] MEDS: GABAPENTIN 100 MG CAPSULE PO SCH (23:18)
[2022-08-15] MEDS: THIAMINE HCL 100 MG TABLET (FP) PO SCH (23:19)
[2022-08-16] MEDS ORDERED: methaDONE HCL 10 MG TABLET PO SCH (06:00)
[2022-08-16] MEDS: methaDONE 40 MG, methaDONE 20 MG PO SCH (06:31)
[2022-08-16 07:26] VITALS: RESP 18
[2022-08-16] MEDS ORDERED: predniSONE 10 MG TABLET (UD) PO ONE (10:00)
[2022-08-16] MEDS: PRENATAL VITAMINS W/ FOLIC ACID TABLET (FP) PO SCH (10:27)
[2022-08-16] MEDS: NICOTINE 7 MG/24 HOURS TOPICAL PATCH TD SCH (10:27)
[2022-08-16] MEDS: GABAPENTIN 100 MG CAPSULE PO SCH ×2 (10:27→21:45)
[2022-08-16] MEDS: MELATONIN 5 MG TABLETS PO SCH (21:45)
[2022-08-16] MEDS: MIRTAZAPINE 15 MG TABLET (FP) PO SCH (21:45)
[2022-08-16] MEDS: THIAMINE HCL 100 MG TABLET (FP) PO SCH (21:46)
[2022-08-17] MEDS: methaDONE 40 MG, methaDONE 20 MG PO SCH (06:25)
[2022-08-17] MEDS: PRENATAL VITAMINS W/ FOLIC ACID TABLET (FP) PO SCH (09:28)
[2022-08-17] MEDS: GABAPENTIN 100 MG CAPSULE PO SCH ×2 (09:28→22:24)
[2022-08-17] MEDS: NICOTINE 7 MG/24 HOURS TOPICAL PATCH TD SCH (09:28)
[2022-08-17] MEDS: ALBUTEROL SO4 HFA INHALER IH PRN (09:29)
[2022-08-17] MEDS: MAG HYDROX/AL HYDROX/SIMETH 30 ML UNIT-DOSE CUP PO PRN (17:14)
[2022-08-17] MEDS: THIAMINE HCL 100 MG TABLET (FP) PO SCH (22:24)
[2022-08-17] MEDS: MELATONIN 5 MG TABLETS PO SCH (22:24)
[2022-08-17] MEDS: MIRTAZAPINE 15 MG TABLET (FP) PO SCH (22:24)
[2022-08-18] MEDS: methaDONE 40 MG, methaDONE 20 MG PO SCH (06:46)
[2022-08-18] MEDS: ALBUTEROL SO4 HFA INHALER IH PRN ×3 (08:23→21:47)
[2022-08-18] MEDS: GABAPENTIN 100 MG CAPSULE PO SCH ×2 (09:53→21:45)
[2022-08-18] MEDS: PRENATAL VITAMINS W/ FOLIC ACID TABLET (FP) PO SCH (09:53)
[2022-08-18] MEDS: NICOTINE 7 MG/24 HOURS TOPICAL PATCH TD SCH (09:53)
[2022-08-18] MEDS: MAG HYDROX/AL HYDROX/SIMETH 30 ML UNIT-DOSE CUP PO PRN (10:48)
[2022-08-18] MEDS ORDERED: PANTOPRAZOLE 40 MG TABLET PO SCH (12:30)
[2022-08-18] MEDS: FAMOTIDINE 20 MG TABLET PO SCH (15:39)
[2022-08-18] MEDS: MELATONIN 5 MG TABLETS PO SCH (21:45)
[2022-08-18] MEDS: MIRTAZAPINE 15 MG TABLET (FP) PO SCH (21:45)
[2022-08-18] MEDS: THIAMINE HCL 100 MG TABLET (FP) PO SCH (21:45)
[2022-08-19] MEDS: methaDONE 40 MG, methaDONE 20 MG PO SCH (06:37)
[2022-08-19] MEDS: ALBUTEROL SO4 HFA INHALER IH PRN ×4 (07:01→22:29)
[2022-08-19] MEDS: NICOTINE 7 MG/24 HOURS TOPICAL PATCH TD SCH (10:07)
[2022-08-19] MEDS: GABAPENTIN 100 MG CAPSULE PO SCH ×2 (10:07→21:34)
[2022-08-19] MEDS: FAMOTIDINE 20 MG TABLET PO SCH (10:08)
[2022-08-19] MEDS: PRENATAL VITAMINS W/ FOLIC ACID TABLET (FP) PO SCH (10:08)
[2022-08-19] MEDS: hydrOXYzine PAMOATE 25 MG CAPSULE (FP) PO PRN ×2 (10:09→17:01)
[2022-08-19] MEDS: NICOTINE 10 MG CARTRIDGE (INHALER) IH PRN (10:30)
[2022-08-19] MEDS: MIRTAZAPINE 15 MG TABLET (FP) PO SCH (21:34)
[2022-08-19] MEDS: MELATONIN 5 MG TABLETS PO SCH (21:34)
[2022-08-19] MEDS: THIAMINE HCL 100 MG TABLET (FP) PO SCH (21:34)
[2022-08-20] MEDS: methaDONE 40 MG, methaDONE 20 MG PO SCH (06:15)
[2022-08-20] MEDS: NICOTINE 10 MG CARTRIDGE (INHALER) IH PRN ×2 (06:16→16:49)
[2022-08-20] MEDS: ALBUTEROL SO4 HFA INHALER IH PRN ×2 (09:38→14:50)
[2022-08-20] MEDS: NICOTINE 7 MG/24 HOURS TOPICAL PATCH TD SCH (09:39)
[2022-08-20] MEDS: FAMOTIDINE 20 MG TABLET PO SCH (09:39)
[2022-08-20] MEDS: GABAPENTIN 100 MG CAPSULE PO SCH ×2 (09:39→21:22)
[2022-08-20] MEDS: PRENATAL VITAMINS W/ FOLIC ACID TABLET (FP) PO SCH (09:40)
[2022-08-20] MEDS: BUDESONIDE/FORMETEROL FUMARATE 80/4.5 mcg INHALER IH SCH ×2 (10:01→21:21)
[2022-08-20] MEDS: hydrOXYzine PAMOATE 25 MG CAPSULE (FP) PO PRN ×2 (13:54→21:23)
[2022-08-20] MEDS: THIAMINE HCL 100 MG TABLET (FP) PO SCH (21:22)
[2022-08-20] MEDS: MIRTAZAPINE 15 MG TABLET (FP) PO SCH (21:22)
[2022-08-20] MEDS: MELATONIN 5 MG TABLETS PO SCH (21:23)
[2022-08-21] MEDS: MAG HYDROX/AL HYDROX/SIMETH 30 ML UNIT-DOSE CUP PO PRN ×2 (04:14→19:58)
[2022-08-21] MEDS: methaDONE 40 MG, methaDONE 20 MG PO SCH (06:27)
[2022-08-21] MEDS: ALBUTEROL SO4 HFA INHALER IH PRN ×2 (08:58→19:56)
[2022-08-21] MEDS: BUDESONIDE/FORMETEROL FUMARATE 80/4.5 mcg INHALER IH SCH ×2 (09:53→21:59)
[2022-08-21] MEDS: NICOTINE 7 MG/24 HOURS TOPICAL PATCH TD SCH (09:53)
[2022-08-21] MEDS: GABAPENTIN 100 MG CAPSULE PO SCH ×2 (09:53→21:58)
[2022-08-21] MEDS: FAMOTIDINE 20 MG TABLET PO SCH (09:53)
[2022-08-21] MEDS: PRENATAL VITAMINS W/ FOLIC ACID TABLET (FP) PO SCH (09:53)
[2022-08-21] MEDS: NICOTINE 10 MG CARTRIDGE (INHALER) IH PRN ×2 (09:55→19:54)
[2022-08-21] MEDS: hydrOXYzine PAMOATE 25 MG CAPSULE (FP) PO PRN ×2 (09:55→21:59)
[2022-08-21] MEDS: MELATONIN 5 MG TABLETS PO SCH (21:58)
[2022-08-21] MEDS: MIRTAZAPINE 15 MG TABLET (FP) PO SCH (21:58)
[2022-08-21] MEDS: THIAMINE HCL 100 MG TABLET (FP) PO SCH (22:11)
[2022-08-22] MEDS: methaDONE 40 MG, methaDONE 20 MG PO SCH (06:03)
[2022-08-22] MEDS: NICOTINE 10 MG CARTRIDGE (INHALER) IH PRN (06:04)
[2022-08-22 07:28] VITALS: BP 135/84; PULSE 83; TEMP 97.1
[2022-08-22] MEDS: BUDESONIDE/FORMETEROL FUMARATE 80/4.5 mcg INHALER IH SCH (10:08)
[2022-08-22] MEDS: ALBUTEROL SO4 HFA INHALER IH PRN ×2 (10:09→14:13)
[2022-08-22] MEDS: GABAPENTIN 100 MG CAPSULE PO SCH (10:09)
[2022-08-22] MEDS: hydrOXYzine PAMOATE 25 MG CAPSULE (FP) PO PRN (10:09)
[2022-08-22] MEDS: PRENATAL VITAMINS W/ FOLIC ACID TABLET (FP) PO SCH (10:09)
[2022-08-22] MEDS: FAMOTIDINE 20 MG TABLET PO SCH (10:09)
[2022-08-22] MEDS: NICOTINE 7 MG/24 HOURS TOPICAL PATCH TD SCH (10:10)
[2022-08-23] MEDS ORDERED: methaDONE 40 MG, methaDONE 20 MG PO SCH (06:00)
== END 2022-08-22 15:20 | disposition home or self-care (01) | DRG 772 ==
LOC: YASAS 17:09 → Y5N 17:10
PROVIDERS: ADMIT Allergy & Immunology; ATTEND Psychiatry & Neurology Pain Medicine
PROC: HZ42ZZZ Group Counseling for Substance Abuse Treatment, Cognitive-Behavioral (ICD-10-PCS; principal; 2022-08-15)
DX: F11.20 Opioid dependence, uncomplicated (principal); F10.20 Alcohol dependence, uncomplicated; F14.20 Cocaine dependence, uncomplicated; F12.20 Cannabis dependence, uncomplicated; F17.210 Nicotine dependence, cigarettes, uncomplicated; F19.282 Other psychoactive substance dependence with psychoactive substance-induced sleep disorder; F19.280 Other psychoactive substance dependence with psychoactive substance-induced anxiety disorder; J45.909 Unspecified asthma, uncomplicated; K21.9 Gastro-esophageal reflux disease without esophagitis; Z91.51 Personal history of suicidal behavior

== ENCOUNTER 2022-10-04 15:48 | Inpatient (IN) | payer OTHER ==
[2022-10-04 17:42] VITALS: BMI 32.5
[2022-10-04] MEDS ORDERED: ALBUTEROL SO4 HFA INHALER IH ONE (17:57)
[2022-10-04] MEDS ORDERED: NALOXONE HCL 0.4 MG/ML VIAL IM PRN (20:07)
[2022-10-04] MEDS ORDERED: DICYCLOMINE HCL 10 MG CAPSULE PO PRN (20:07)
[2022-10-04] MEDS ORDERED: IBUPROFEN 600 MG TABLET (FP) PO PRN (20:07)
[2022-10-04] MEDS ORDERED: ONDANSETRON *ODT* 4 MG TABLET SL PRN (20:07)
[2022-10-04] MEDS ORDERED: chlordiazePOXIDE HCL 25 MG CAPSULE PO PRN (20:07)
[2022-10-04] MEDS ORDERED: POLYETHYLENE GLYCOL (HEALTHYLAX) 3350 17 GM PACKET PO PRN (20:07)
[2022-10-04] MEDS ORDERED: LOPERAMIDE HCL 2 MG CAPSULE PO PRN (20:07)
[2022-10-04] MEDS ORDERED: guaiFENesin 600 MG TABLET.ER (FP) PO PRN (20:07)
[2022-10-04] MEDS ORDERED: MAGNESIUM HYDROX 2400MG/30ML ORAL SUSPENSION 30 ML CUP PO PRN (20:07)
[2022-10-04] MEDS ORDERED: NICOTINE POLACRILEX 2 MG GUM BUC PRN (20:07)
[2022-10-04] MEDS ORDERED: BENZONATATE 200 MG CAPSULE PO PRN (20:07)
[2022-10-04] MEDS ORDERED: BENZOCAINE/MENTHOL (CHLORASEPTIC ) LOZENGE MM PRN (20:07)
[2022-10-04] MEDS ORDERED: NALOXONE HCL (KLOXXADO) 8 MG SPRAY NS PRN (20:07)
[2022-10-04] MEDS ORDERED: IBUPROFEN 400 MG TABLET (FP) PO PRN (20:07)
[2022-10-04] MEDS ORDERED: ACETAMINOPHEN 325 MG TABLET (FP) PO PRN (20:07)
[2022-10-04] MEDS: hydrOXYzine PAMOATE 25 MG CAPSULE (FP) PO PRN (20:23)
[2022-10-04] MEDS ORDERED: hydrOXYzine PAMOATE 25 MG CAPSULE (FP) PO ONE (20:23)
[2022-10-04] MEDS: MAG HYDROX/AL HYDROX/SIMETH 30 ML UNIT-DOSE CUP PO PRN (21:28)
[2022-10-04] MEDS: chlordiazePOXIDE HCL 25 MG CAPSULE PO SCH (22:37)
[2022-10-04] MEDS: THIAMINE HCL 100 MG TABLET (FP) PO SCH (22:37)
[2022-10-04] MEDS: MELATONIN 5 MG TABLETS PO SCH (22:40)
[2022-10-05] MEDS: chlordiazePOXIDE HCL 25 MG CAPSULE PO SCH ×4 (05:51→22:21)
[2022-10-05] MEDS: NICOTINE 14 MG/24 HOURS TOPICAL PATCH TD SCH (10:09)
[2022-10-05] MEDS: PRENATAL VITAMINS W/ FOLIC ACID TABLET (FP) PO SCH (10:09)
[2022-10-05] MEDS ORDERED: methaDONE HCL 40 MG DISPERSABLE TABLET PO SCH (10:15)
[2022-10-05] MEDS: methaDONE 40 MG, methaDONE 20 MG PO SCH (10:25)
[2022-10-05 11:15] LABS: HEMATOCRIT 33.4 % (35.4-49); HEMOGLOBIN 11.7 GM/dL (11.7-16.9); MCH 26.9 pg (25.7-33.7); MCHC 34.9 g/dl (32.0-35.9); MEAN CELL VOLUME 77.1 fl (80-96); MEAN PLT VOLUME 7.9 fl (7.5-11.1); PLATELET COUNT 250 10^3/uL (134-434); RBC 4.33 M/mm3 (4.00-5.60); RDW 14.7 % (11.9-15.9)
[2022-10-05 11:22] LABS: ALBUMIN 3.4 g/dl (3.4-5.0); BLOOD UREA NITROGEN 26.2 mg/dL (7-18); CALCIUM 8.5 mg/dL (8.5-10.1)
[2022-10-05 11:25] LABS: BILIRUBIN,TOTAL 0.4 mg/dL (0.2-1); CREATININE 1.1 mg/dL (0.55-1.3); TOT PROT 6.8 g/dl (6.4-8.2)
[2022-10-05] MEDS: MAG HYDROX/AL HYDROX/SIMETH 30 ML UNIT-DOSE CUP PO PRN ×2 (11:43→20:39)
[2022-10-05] MEDS: NICOTINE 10 MG CARTRIDGE (INHALER) IH SCH (19:30)
[2022-10-05] MEDS: ALBUTEROL SO4 HFA INHALER IH PRN (20:38)
[2022-10-05] MEDS: BUDESONIDE/FORMETEROL FUMARATE 80/4.5 mcg INHALER IH SCH (22:21)
[2022-10-05] MEDS: MELATONIN 5 MG TABLETS PO SCH (22:21)
[2022-10-05] MEDS: THIAMINE HCL 100 MG TABLET (FP) PO SCH (22:21)
[2022-10-05] MEDS: BISMUTH SUBSALICYLATE 524 MG/30 ML PO PRN (23:53)
[2022-10-06] MEDS: methaDONE 40 MG, methaDONE 20 MG PO SCH (05:33)
[2022-10-06] MEDS: chlordiazePOXIDE HCL 25 MG CAPSULE PO SCH ×4 (05:34→22:31)
[2022-10-06] MEDS: ALBUTEROL SO4 HFA INHALER IH PRN ×2 (05:36→10:11)
[2022-10-06] MEDS: PRENATAL VITAMINS W/ FOLIC ACID TABLET (FP) PO SCH (10:11)
[2022-10-06] MEDS: BUDESONIDE/FORMETEROL FUMARATE 80/4.5 mcg INHALER IH SCH ×2 (10:12→22:34)
[2022-10-06] MEDS: NICOTINE 14 MG/24 HOURS TOPICAL PATCH TD SCH (10:13)
[2022-10-06] MEDS: NICOTINE 10 MG CARTRIDGE (INHALER) IH SCH (10:13)
[2022-10-06] MEDS: MAG HYDROX/AL HYDROX/SIMETH 30 ML UNIT-DOSE CUP PO PRN ×2 (11:01→20:09)
[2022-10-06] MEDS: MELATONIN 5 MG TABLETS PO SCH (22:31)
[2022-10-06] MEDS: THIAMINE HCL 100 MG TABLET (FP) PO SCH (22:31)
[2022-10-06] MEDS: BISMUTH SUBSALICYLATE 524 MG/30 ML PO PRN (22:35)
[2022-10-07] MEDS ORDERED: chlordiazePOXIDE HCL 10 MG CAPSULE PO PRN
[2022-10-07] MEDS: MAG HYDROX/AL HYDROX/SIMETH 30 ML UNIT-DOSE CUP PO PRN ×3 (02:30→17:06)
[2022-10-07] MEDS: methaDONE 40 MG, methaDONE 20 MG PO SCH (05:53)
[2022-10-07] MEDS: chlordiazePOXIDE HCL 10 MG CAPSULE PO SCH ×4 (05:53→22:07)
[2022-10-07] MEDS: ALBUTEROL SO4 HFA INHALER IH PRN (05:57)
[2022-10-07] MEDS: BUDESONIDE/FORMETEROL FUMARATE 80/4.5 mcg INHALER IH SCH ×2 (10:17→22:06)
[2022-10-07] MEDS: PRENATAL VITAMINS W/ FOLIC ACID TABLET (FP) PO SCH (10:17)
[2022-10-07] MEDS: NICOTINE 14 MG/24 HOURS TOPICAL PATCH TD SCH (10:18)
[2022-10-07] MEDS: NICOTINE 10 MG CARTRIDGE (INHALER) IH SCH (10:18)
[2022-10-07] MEDS: hydrOXYzine PAMOATE 25 MG CAPSULE (FP) PO PRN ×2 (10:21→22:10)
[2022-10-07] MEDS ORDERED: FAMOTIDINE 20 MG TABLET PO ONE (18:08)
[2022-10-07] MEDS: THIAMINE HCL 100 MG TABLET (FP) PO SCH (22:07)
[2022-10-07] MEDS: MELATONIN 5 MG TABLETS PO SCH (22:07)
[2022-10-08] MEDS: chlordiazePOXIDE HCL 10 MG CAPSULE PO SCH ×2 (05:39→17:45)
[2022-10-08] MEDS: methaDONE 40 MG, methaDONE 20 MG PO SCH (05:39)
[2022-10-08] MEDS: MAG HYDROX/AL HYDROX/SIMETH 30 ML UNIT-DOSE CUP PO PRN ×2 (06:12→11:31)
[2022-10-08] MEDS: NICOTINE 10 MG CARTRIDGE (INHALER) IH PRN ×3 (09:29→22:03)
[2022-10-08] MEDS: METHOCARBAMOL 500 MG TABLET PO PRN ×2 (09:29→22:34)
[2022-10-08] MEDS: PRENATAL VITAMINS W/ FOLIC ACID TABLET (FP) PO SCH (09:33)
[2022-10-08] MEDS: NICOTINE 14 MG/24 HOURS TOPICAL PATCH TD SCH (09:33)
[2022-10-08] MEDS: BUDESONIDE/FORMETEROL FUMARATE 80/4.5 mcg INHALER IH SCH ×2 (09:33→22:00)
[2022-10-08] MEDS ORDERED: FAMOTIDINE 20 MG TABLET PO ONE (15:34)
[2022-10-08] MEDS: ALBUTEROL SO4 HFA INHALER IH PRN (20:23)
[2022-10-08] MEDS: hydrOXYzine PAMOATE 25 MG CAPSULE (FP) PO PRN (22:02)
[2022-10-08] MEDS: THIAMINE HCL 100 MG TABLET (FP) PO SCH (22:02)
[2022-10-08] MEDS: MELATONIN 5 MG TABLETS PO SCH (22:02)
[2022-10-08] MEDS: FAMOTIDINE 20 MG TABLET PO SCH (22:03)
[2022-10-09] MEDS ORDERED: chlordiazePOXIDE HCL 10 MG CAPSULE PO ONE (05:00)
[2022-10-09] MEDS: methaDONE 40 MG, methaDONE 20 MG PO SCH (05:12)
[2022-10-09] MEDS: METHOCARBAMOL 500 MG TABLET PO PRN (05:13)
[2022-10-09 06:11] VITALS: TEMP 97.7
[2022-10-09] MEDS: MAG HYDROX/AL HYDROX/SIMETH 30 ML UNIT-DOSE CUP PO PRN (07:16)
[2022-10-09] MEDS: NICOTINE 10 MG CARTRIDGE (INHALER) IH PRN ×2 (07:45→10:19)
[2022-10-09 09:54] VITALS: BP 142/80; PULSE 84; RESP 18
[2022-10-09] MEDS: FAMOTIDINE 20 MG TABLET PO SCH (10:17)
[2022-10-09] MEDS: PRENATAL VITAMINS W/ FOLIC ACID TABLET (FP) PO SCH (10:17)
[2022-10-09] MEDS: BUDESONIDE/FORMETEROL FUMARATE 80/4.5 mcg INHALER IH SCH (10:18)
[2022-10-09] MEDS: NICOTINE 14 MG/24 HOURS TOPICAL PATCH TD SCH (10:18)
== END 2022-10-09 13:10 | disposition other institution (70) | DRG 773 ==
LOC: YASAS 15:48 → Y3N 20:50
PROVIDERS: ADMIT Allergy & Immunology; ATTEND Surgery
PROC: HZ2ZZZZ Detoxification Services for Substance Abuse Treatment (ICD-10-PCS; principal; 2022-10-04)
DX: F10.230 Alcohol dependence with withdrawal, uncomplicated (principal); F11.20 Opioid dependence, uncomplicated; F14.20 Cocaine dependence, uncomplicated; F12.20 Cannabis dependence, uncomplicated; F17.210 Nicotine dependence, cigarettes, uncomplicated; F41.9 Anxiety disorder, unspecified; J45.909 Unspecified asthma, uncomplicated; K22.9 Disease of esophagus, unspecified; M54.50 Low back pain, unspecified; G89.29 Other chronic pain; R79.89 Other specified abnormal findings of blood chemistry; R74.01 Elevation of levels of liver transaminase levels
CPT/HCPCS: 36415; 80053; 85027; 86780; 87811; C9803-CS; U0003; U0005

== ENCOUNTER 2022-10-09 13:22 | Inpatient (IN) | payer OTHER ==
[2022-10-09] MEDS ORDERED: guaiFENesin 600 MG TABLET.ER (FP) PO PRN (14:33)
[2022-10-09] MEDS ORDERED: NALOXONE HCL 0.4 MG/ML VIAL IVPUSH PRN (14:33)
[2022-10-09] MEDS ORDERED: NALOXONE HCL (KLOXXADO) 8 MG SPRAY NS PRN (14:33)
[2022-10-09] MEDS ORDERED: BENZONATATE 200 MG CAPSULE PO PRN (14:33)
[2022-10-09] MEDS ORDERED: POLYETHYLENE GLYCOL (HEALTHYLAX) 3350 17 GM PACKET PO PRN (14:33)
[2022-10-09] MEDS ORDERED: BENZOCAINE/MENTHOL (CHLORASEPTIC ) LOZENGE MM PRN (14:33)
[2022-10-09] MEDS ORDERED: MAGNESIUM HYDROX 2400MG/30ML ORAL SUSPENSION 30 ML CUP PO PRN (14:33)
[2022-10-09] MEDS ORDERED: LOPERAMIDE HCL 2 MG CAPSULE PO PRN (14:33)
[2022-10-09] MEDS: MAG HYDROX/AL HYDROX/SIMETH 30 ML UNIT-DOSE CUP PO PRN ×2 (16:26→22:03)
[2022-10-09] MEDS: ALBUTEROL SO4 HFA INHALER IH PRN (16:26)
[2022-10-09] MEDS: NICOTINE 10 MG CARTRIDGE (INHALER) IH PRN (17:24)
[2022-10-09] MEDS: hydrOXYzine PAMOATE 25 MG CAPSULE (FP) PO PRN (19:28)
[2022-10-09] MEDS: METHOCARBAMOL 500 MG TABLET PO PRN (19:28)
[2022-10-09] MEDS: MELATONIN 5 MG TABLETS PO SCH (21:04)
[2022-10-09] MEDS: THIAMINE HCL 100 MG TABLET (FP) PO SCH (21:04)
[2022-10-10] MEDS ORDERED: methaDONE HCL 40 MG DISPERSABLE TABLET PO SCH (06:00)
[2022-10-10] MEDS: MAG HYDROX/AL HYDROX/SIMETH 30 ML UNIT-DOSE CUP PO PRN (06:01)
[2022-10-10] MEDS: methaDONE 40 MG, methaDONE 20 MG PO SCH (06:01)
[2022-10-10] MEDS: hydrOXYzine PAMOATE 25 MG CAPSULE (FP) PO PRN ×4 (06:03→21:14)
[2022-10-10] MEDS: METHOCARBAMOL 500 MG TABLET PO PRN ×2 (06:03→21:11)
[2022-10-10] MEDS: NICOTINE 10 MG CARTRIDGE (INHALER) IH PRN ×4 (06:04→19:19)
[2022-10-10] MEDS: PRENATAL VITAMINS W/ FOLIC ACID TABLET (FP) PO SCH (09:46)
[2022-10-10] MEDS ORDERED: FAMOTIDINE 20 MG TABLET PO ONE (11:17)
[2022-10-10] MEDS: TOLNAFTATE 1% CREAM 15 GM TUBE TP SCH ×2 (11:49→21:11)
[2022-10-10] MEDS: ALBUTEROL SO4 HFA INHALER IH PRN ×2 (12:54→21:11)
[2022-10-10] MEDS: THIAMINE HCL 100 MG TABLET (FP) PO SCH (21:11)
[2022-10-10] MEDS: MELATONIN 5 MG TABLETS PO SCH (21:13)
[2022-10-10] MEDS: FAMOTIDINE 20 MG TABLET PO SCH (21:13)
[2022-10-11] MEDS: MAG HYDROX/AL HYDROX/SIMETH 30 ML UNIT-DOSE CUP PO PRN ×4 (00:55→22:47)
[2022-10-11] MEDS: methaDONE 40 MG, methaDONE 20 MG PO SCH (05:59)
[2022-10-11] MEDS: METHOCARBAMOL 500 MG TABLET PO PRN ×3 (05:59→22:47)
[2022-10-11] MEDS: hydrOXYzine PAMOATE 25 MG CAPSULE (FP) PO PRN ×4 (06:00→21:20)
[2022-10-11] MEDS: NICOTINE 10 MG CARTRIDGE (INHALER) IH PRN ×4 (06:03→18:53)
[2022-10-11] MEDS: FAMOTIDINE 20 MG TABLET PO SCH ×2 (09:32→21:20)
[2022-10-11] MEDS: PRENATAL VITAMINS W/ FOLIC ACID TABLET (FP) PO SCH (09:32)
[2022-10-11] MEDS: TOLNAFTATE 1% CREAM 15 GM TUBE TP SCH ×2 (09:33→23:19)
[2022-10-11] MEDS: ALBUTEROL SO4 HFA INHALER IH PRN (21:19)
[2022-10-11] MEDS: MELATONIN 5 MG TABLETS PO SCH (21:20)
[2022-10-11] MEDS: THIAMINE HCL 100 MG TABLET (FP) PO SCH (21:20)
[2022-10-12] MEDS: NICOTINE 10 MG CARTRIDGE (INHALER) IH PRN ×6 (01:29→19:45)
[2022-10-12] MEDS: ALBUTEROL SO4 HFA INHALER IH PRN ×3 (03:23→15:38)
[2022-10-12] MEDS: methaDONE 40 MG, methaDONE 20 MG PO SCH (06:10)
[2022-10-12] MEDS: PRENATAL VITAMINS W/ FOLIC ACID TABLET (FP) PO SCH (09:36)
[2022-10-12] MEDS: FAMOTIDINE 20 MG TABLET PO SCH ×2 (09:36→21:07)
[2022-10-12] MEDS: hydrOXYzine PAMOATE 25 MG CAPSULE (FP) PO PRN ×3 (09:36→21:07)
[2022-10-12] MEDS: METHOCARBAMOL 500 MG TABLET PO PRN ×3 (09:36→21:08)
[2022-10-12] MEDS: TOLNAFTATE 1% CREAM 15 GM TUBE TP SCH ×2 (09:38→22:26)
[2022-10-12] MEDS: MAG HYDROX/AL HYDROX/SIMETH 30 ML UNIT-DOSE CUP PO PRN (19:45)
[2022-10-12] MEDS: THIAMINE HCL 100 MG TABLET (FP) PO SCH (21:07)
[2022-10-12] MEDS: MELATONIN 5 MG TABLETS PO SCH (21:09)
[2022-10-13] MEDS: ALBUTEROL SO4 HFA INHALER IH PRN ×4 (00:23→18:53)
[2022-10-13] MEDS: NICOTINE 10 MG CARTRIDGE (INHALER) IH PRN ×5 (03:20→18:53)
[2022-10-13] MEDS: MAG HYDROX/AL HYDROX/SIMETH 30 ML UNIT-DOSE CUP PO PRN (03:20)
[2022-10-13] MEDS: methaDONE 40 MG, methaDONE 20 MG PO SCH (05:58)
[2022-10-13] MEDS: METHOCARBAMOL 500 MG TABLET PO PRN ×3 (05:58→18:55)
[2022-10-13] MEDS: PRENATAL VITAMINS W/ FOLIC ACID TABLET (FP) PO SCH (09:28)
[2022-10-13] MEDS: hydrOXYzine PAMOATE 25 MG CAPSULE (FP) PO PRN ×3 (09:29→18:55)
[2022-10-13] MEDS: FAMOTIDINE 20 MG TABLET PO SCH ×2 (09:29→21:36)
[2022-10-13] MEDS: TOLNAFTATE 1% CREAM 15 GM TUBE TP SCH ×2 (09:46→21:37)
[2022-10-13] MEDS: BUDESONIDE/FORMETEROL FUMARATE 160/4.5 mcg INHALER IH SCH ×2 (12:38→21:39)
[2022-10-13] MEDS: THIAMINE HCL 100 MG TABLET (FP) PO SCH (21:36)
[2022-10-13] MEDS: MELATONIN 5 MG TABLETS PO SCH (21:38)
[2022-10-14] MEDS: NICOTINE 10 MG CARTRIDGE (INHALER) IH PRN ×5 (00:51→18:59)
[2022-10-14] MEDS: MAG HYDROX/AL HYDROX/SIMETH 30 ML UNIT-DOSE CUP PO PRN (03:47)
[2022-10-14] MEDS: methaDONE 40 MG, methaDONE 20 MG PO SCH (05:57)
[2022-10-14] MEDS: METHOCARBAMOL 500 MG TABLET PO PRN ×3 (05:59→20:17)
[2022-10-14] MEDS: BUDESONIDE/FORMETEROL FUMARATE 160/4.5 mcg INHALER IH SCH ×3 (09:42→22:26)
[2022-10-14] MEDS: hydrOXYzine PAMOATE 25 MG CAPSULE (FP) PO PRN ×3 (09:43→19:00)
[2022-10-14] MEDS: FAMOTIDINE 20 MG TABLET PO SCH ×3 (09:43→22:27)
[2022-10-14] MEDS: PRENATAL VITAMINS W/ FOLIC ACID TABLET (FP) PO SCH (09:43)
[2022-10-14] MEDS: TOLNAFTATE 1% CREAM 15 GM TUBE TP SCH ×3 (11:21→22:27)
[2022-10-14] MEDS: MELATONIN 5 MG TABLETS PO SCH (21:36)
[2022-10-14] MEDS: THIAMINE HCL 100 MG TABLET (FP) PO SCH ×2 (21:38→22:26)
[2022-10-15] MEDS: methaDONE 40 MG, methaDONE 20 MG PO SCH (06:23)
[2022-10-15] MEDS: NICOTINE 10 MG CARTRIDGE (INHALER) IH PRN ×5 (06:23→21:12)
[2022-10-15] MEDS: METHOCARBAMOL 500 MG TABLET PO PRN ×2 (06:25→12:40)
[2022-10-15] MEDS: hydrOXYzine PAMOATE 25 MG CAPSULE (FP) PO PRN ×3 (06:25→21:09)
[2022-10-15] MEDS: PRENATAL VITAMINS W/ FOLIC ACID TABLET (FP) PO SCH (09:33)
[2022-10-15] MEDS: TOLNAFTATE 1% CREAM 15 GM TUBE TP SCH ×2 (09:33→21:12)
[2022-10-15] MEDS: FAMOTIDINE 20 MG TABLET PO SCH ×2 (09:33→21:09)
[2022-10-15] MEDS: BUDESONIDE/FORMETEROL FUMARATE 160/4.5 mcg INHALER IH SCH ×2 (09:33→21:11)
[2022-10-15] MEDS: MAG HYDROX/AL HYDROX/SIMETH 30 ML UNIT-DOSE CUP PO PRN (09:34)
[2022-10-15] MEDS: MELATONIN 5 MG TABLETS PO SCH (21:09)
[2022-10-15] MEDS: THIAMINE HCL 100 MG TABLET (FP) PO SCH (21:09)
[2022-10-15] MEDS: ALBUTEROL SO4 HFA INHALER IH PRN (21:09)
[2022-10-16] MEDS: NICOTINE 10 MG CARTRIDGE (INHALER) IH PRN ×5 (05:50→21:09)
[2022-10-16] MEDS: methaDONE 40 MG, methaDONE 20 MG PO SCH (05:51)
[2022-10-16] MEDS: hydrOXYzine PAMOATE 25 MG CAPSULE (FP) PO PRN ×3 (09:05→21:04)
[2022-10-16] MEDS: PRENATAL VITAMINS W/ FOLIC ACID TABLET (FP) PO SCH (09:05)
[2022-10-16] MEDS: FAMOTIDINE 20 MG TABLET PO SCH ×2 (09:05→21:03)
[2022-10-16] MEDS: BUDESONIDE/FORMETEROL FUMARATE 160/4.5 mcg INHALER IH SCH ×2 (09:05→21:09)
[2022-10-16] MEDS: ALBUTEROL SO4 HFA INHALER IH PRN (09:05)
[2022-10-16] MEDS: TOLNAFTATE 1% CREAM 15 GM TUBE TP SCH ×2 (09:07→21:10)
[2022-10-16] MEDS: METHOCARBAMOL 500 MG TABLET PO PRN ×3 (09:20→21:05)
[2022-10-16] MEDS: MELATONIN 5 MG TABLETS PO SCH (21:03)
[2022-10-16] MEDS: THIAMINE HCL 100 MG TABLET (FP) PO SCH (21:03)
[2022-10-17] MEDS: NICOTINE 10 MG CARTRIDGE (INHALER) IH PRN ×6 (01:26→21:09)
[2022-10-17] MEDS: methaDONE 40 MG, methaDONE 20 MG PO SCH (06:03)
[2022-10-17] MEDS: METHOCARBAMOL 500 MG TABLET PO PRN ×3 (06:04→21:06)
[2022-10-17] MEDS: hydrOXYzine PAMOATE 25 MG CAPSULE (FP) PO PRN ×4 (07:08→21:06)
[2022-10-17] MEDS: BUDESONIDE/FORMETEROL FUMARATE 160/4.5 mcg INHALER IH SCH ×2 (09:36→21:06)
[2022-10-17] MEDS: PRENATAL VITAMINS W/ FOLIC ACID TABLET (FP) PO SCH (09:36)
[2022-10-17] MEDS: FAMOTIDINE 20 MG TABLET PO SCH ×2 (09:37→21:05)
[2022-10-17] MEDS: TOLNAFTATE 1% CREAM 15 GM TUBE TP SCH ×2 (10:20→21:43)
[2022-10-17] MEDS: IBUPROFEN 600 MG TABLET (FP) PO PRN (12:32)
[2022-10-17] MEDS: THIAMINE HCL 100 MG TABLET (FP) PO SCH (21:05)
[2022-10-17] MEDS: MELATONIN 5 MG TABLETS PO SCH (21:06)
[2022-10-18] MEDS: METHOCARBAMOL 500 MG TABLET PO PRN ×4 (06:35→23:05)
[2022-10-18] MEDS: methaDONE 40 MG, methaDONE 20 MG PO SCH (06:35)
[2022-10-18] MEDS: hydrOXYzine PAMOATE 25 MG CAPSULE (FP) PO PRN ×4 (06:35→23:05)
[2022-10-18] MEDS: NICOTINE 10 MG CARTRIDGE (INHALER) IH PRN ×5 (06:37→18:42)
[2022-10-18] MEDS: FAMOTIDINE 20 MG TABLET PO SCH ×2 (09:29→21:04)
[2022-10-18] MEDS: PRENATAL VITAMINS W/ FOLIC ACID TABLET (FP) PO SCH (09:29)
[2022-10-18] MEDS: IBUPROFEN 400 MG TABLET (FP) PO PRN (09:30)
[2022-10-18] MEDS: TOLNAFTATE 1% CREAM 15 GM TUBE TP SCH ×2 (10:30→21:04)
[2022-10-18] MEDS: MELATONIN 5 MG TABLETS PO SCH (21:05)
[2022-10-18] MEDS: THIAMINE HCL 100 MG TABLET (FP) PO SCH (21:05)
[2022-10-19] MEDS: methaDONE 40 MG, methaDONE 20 MG PO SCH (06:21)
[2022-10-19] MEDS: hydrOXYzine PAMOATE 25 MG CAPSULE (FP) PO PRN ×4 (06:24→21:00)
[2022-10-19] MEDS: METHOCARBAMOL 500 MG TABLET PO PRN ×3 (06:24→21:00)
[2022-10-19] MEDS: NICOTINE 10 MG CARTRIDGE (INHALER) IH PRN ×4 (06:33→21:27)
[2022-10-19] MEDS: FAMOTIDINE 20 MG TABLET PO SCH ×2 (09:31→21:00)
[2022-10-19] MEDS: PRENATAL VITAMINS W/ FOLIC ACID TABLET (FP) PO SCH (09:32)
[2022-10-19] MEDS: TOLNAFTATE 1% CREAM 15 GM TUBE TP SCH ×2 (09:32→21:01)
[2022-10-19] MEDS: THIAMINE HCL 100 MG TABLET (FP) PO SCH (21:00)
[2022-10-19] MEDS: MELATONIN 5 MG TABLETS PO SCH (21:01)
[2022-10-20] MEDS: methaDONE 40 MG, methaDONE 20 MG PO SCH (06:05)
[2022-10-20] MEDS: hydrOXYzine PAMOATE 25 MG CAPSULE (FP) PO PRN ×4 (06:05→21:06)
[2022-10-20] MEDS: METHOCARBAMOL 500 MG TABLET PO PRN ×3 (06:05→21:06)
[2022-10-20] MEDS: NICOTINE 10 MG CARTRIDGE (INHALER) IH PRN ×4 (06:20→17:11)
[2022-10-20] MEDS: PRENATAL VITAMINS W/ FOLIC ACID TABLET (FP) PO SCH (09:34)
[2022-10-20] MEDS: ACETAMINOPHEN 325 MG TABLET (FP) PO PRN (09:34)
[2022-10-20] MEDS: TOLNAFTATE 1% CREAM 15 GM TUBE TP SCH ×2 (10:54→21:07)
[2022-10-20] MEDS: FAMOTIDINE 20 MG TABLET PO SCH ×2 (10:54→21:06)
[2022-10-20] MEDS: ALBUTEROL SO4 HFA INHALER IH PRN (21:06)
[2022-10-20] MEDS: THIAMINE HCL 100 MG TABLET (FP) PO SCH (21:06)
[2022-10-20] MEDS: MELATONIN 5 MG TABLETS PO SCH (21:59)
[2022-10-21] MEDS: NICOTINE 10 MG CARTRIDGE (INHALER) IH PRN ×4 (05:56→21:13)
[2022-10-21] MEDS: methaDONE 40 MG, methaDONE 20 MG PO SCH (05:56)
[2022-10-21] MEDS: METHOCARBAMOL 500 MG TABLET PO PRN ×3 (05:57→21:13)
[2022-10-21] MEDS: hydrOXYzine PAMOATE 25 MG CAPSULE (FP) PO PRN ×3 (08:36→21:14)
[2022-10-21] MEDS: PRENATAL VITAMINS W/ FOLIC ACID TABLET (FP) PO SCH (09:30)
[2022-10-21] MEDS: FAMOTIDINE 20 MG TABLET PO SCH ×2 (09:31→21:13)
[2022-10-21] MEDS: TOLNAFTATE 1% CREAM 15 GM TUBE TP SCH ×2 (09:33→21:38)
[2022-10-21] MEDS: IBUPROFEN 400 MG TABLET (FP) PO PRN ×2 (09:33→21:13)
[2022-10-21] MEDS: ACETAMINOPHEN 325 MG TABLET (FP) PO PRN (14:14)
[2022-10-21] MEDS: THIAMINE HCL 100 MG TABLET (FP) PO SCH (21:13)
[2022-10-21] MEDS: MELATONIN 5 MG TABLETS PO SCH (21:38)
[2022-10-22] MEDS: methaDONE 40 MG, methaDONE 20 MG PO SCH (06:04)
[2022-10-22] MEDS: NICOTINE 10 MG CARTRIDGE (INHALER) IH PRN ×5 (06:04→21:08)
[2022-10-22] MEDS: METHOCARBAMOL 500 MG TABLET PO PRN ×3 (06:05→21:09)
[2022-10-22] MEDS: COLLOIDAL OATMEAL 1 BAR EACH TP PRN (07:02)
[2022-10-22] MEDS: hydrOXYzine PAMOATE 25 MG CAPSULE (FP) PO PRN ×3 (07:50→21:09)
[2022-10-22] MEDS: FAMOTIDINE 20 MG TABLET PO SCH ×2 (09:42→21:09)
[2022-10-22] MEDS: PRENATAL VITAMINS W/ FOLIC ACID TABLET (FP) PO SCH (09:42)
[2022-10-22] MEDS: TOLNAFTATE 1% CREAM 15 GM TUBE TP SCH ×2 (09:43→21:09)
[2022-10-22] MEDS: THIAMINE HCL 100 MG TABLET (FP) PO SCH (21:09)
[2022-10-22] MEDS: MELATONIN 5 MG TABLETS PO SCH (21:51)
[2022-10-23] MEDS: NICOTINE 10 MG CARTRIDGE (INHALER) IH PRN ×5 (06:13→22:30)
[2022-10-23] MEDS: METHOCARBAMOL 500 MG TABLET PO PRN ×3 (06:13→22:29)
[2022-10-23] MEDS: methaDONE 40 MG, methaDONE 20 MG PO SCH (06:13)
[2022-10-23] MEDS: IBUPROFEN 600 MG TABLET (FP) PO PRN (07:52)
[2022-10-23] MEDS: hydrOXYzine PAMOATE 25 MG CAPSULE (FP) PO PRN ×3 (09:01→22:29)
[2022-10-23] MEDS: TOLNAFTATE 1% CREAM 15 GM TUBE TP SCH ×2 (09:34→22:30)
[2022-10-23] MEDS: PRENATAL VITAMINS W/ FOLIC ACID TABLET (FP) PO SCH (09:34)
[2022-10-23] MEDS: FAMOTIDINE 20 MG TABLET PO SCH ×2 (09:34→22:29)
[2022-10-23] MEDS: THIAMINE HCL 100 MG TABLET (FP) PO SCH (22:29)
[2022-10-23] MEDS: MELATONIN 5 MG TABLETS PO SCH (22:30)
[2022-10-24] MEDS: methaDONE 40 MG, methaDONE 20 MG PO SCH (05:57)
[2022-10-24] MEDS: METHOCARBAMOL 500 MG TABLET PO PRN ×3 (05:59→21:31)
[2022-10-24] MEDS: hydrOXYzine PAMOATE 25 MG CAPSULE (FP) PO PRN ×3 (05:59→21:30)
[2022-10-24] MEDS: NICOTINE 10 MG CARTRIDGE (INHALER) IH PRN ×6 (06:00→19:49)
[2022-10-24] MEDS: FAMOTIDINE 20 MG TABLET PO SCH ×2 (09:26→21:30)
[2022-10-24] MEDS: PRENATAL VITAMINS W/ FOLIC ACID TABLET (FP) PO SCH (09:26)
[2022-10-24] MEDS: TOLNAFTATE 1% CREAM 15 GM TUBE TP SCH ×2 (09:27→21:30)
[2022-10-24] MEDS: IBUPROFEN 600 MG TABLET (FP) PO PRN (09:27)
[2022-10-24] MEDS: THIAMINE HCL 100 MG TABLET (FP) PO SCH (21:30)
[2022-10-24] MEDS: MELATONIN 5 MG TABLETS PO SCH (21:30)
[2022-10-25] MEDS: methaDONE 40 MG, methaDONE 20 MG PO SCH (06:10)
[2022-10-25] MEDS: hydrOXYzine PAMOATE 25 MG CAPSULE (FP) PO PRN ×4 (06:10→21:02)
[2022-10-25] MEDS: METHOCARBAMOL 500 MG TABLET PO PRN ×3 (06:10→21:02)
[2022-10-25] MEDS: NICOTINE 10 MG CARTRIDGE (INHALER) IH PRN ×6 (06:11→23:39)
[2022-10-25] MEDS: PRENATAL VITAMINS W/ FOLIC ACID TABLET (FP) PO SCH (09:33)
[2022-10-25] MEDS: FAMOTIDINE 20 MG TABLET PO SCH ×2 (09:33→21:01)
[2022-10-25] MEDS: TOLNAFTATE 1% CREAM 15 GM TUBE TP SCH ×2 (09:34→21:06)
[2022-10-25] MEDS: IBUPROFEN 400 MG TABLET (FP) PO PRN (09:34)
[2022-10-25] MEDS: MELATONIN 5 MG TABLETS PO SCH (21:01)
[2022-10-25] MEDS: THIAMINE HCL 100 MG TABLET (FP) PO SCH (21:01)
[2022-10-26] MEDS: methaDONE 40 MG, methaDONE 20 MG PO SCH (06:28)
[2022-10-26] MEDS: NICOTINE 10 MG CARTRIDGE (INHALER) IH PRN ×5 (06:29→21:36)
[2022-10-26] MEDS: hydrOXYzine PAMOATE 25 MG CAPSULE (FP) PO PRN ×3 (06:30→21:36)
[2022-10-26] MEDS: METHOCARBAMOL 500 MG TABLET PO PRN ×3 (06:31→21:35)
[2022-10-26] MEDS: PRENATAL VITAMINS W/ FOLIC ACID TABLET (FP) PO SCH (09:36)
[2022-10-26] MEDS: FAMOTIDINE 20 MG TABLET PO SCH ×2 (09:37→21:35)
[2022-10-26] MEDS: IBUPROFEN 400 MG TABLET (FP) PO PRN (09:38)
[2022-10-26] MEDS: TOLNAFTATE 1% CREAM 15 GM TUBE TP SCH ×2 (09:39→21:36)
[2022-10-26] MEDS: MELATONIN 5 MG TABLETS PO SCH (21:35)
[2022-10-26] MEDS: THIAMINE HCL 100 MG TABLET (FP) PO SCH (21:35)
[2022-10-27] MEDS: methaDONE 40 MG, methaDONE 20 MG PO SCH (05:59)
[2022-10-27] MEDS: METHOCARBAMOL 500 MG TABLET PO PRN ×3 (05:59→21:09)
[2022-10-27] MEDS: hydrOXYzine PAMOATE 25 MG CAPSULE (FP) PO PRN ×3 (05:59→21:09)
[2022-10-27] MEDS: NICOTINE 10 MG CARTRIDGE (INHALER) IH PRN ×5 (06:01→21:10)
[2022-10-27] MEDS: PRENATAL VITAMINS W/ FOLIC ACID TABLET (FP) PO SCH (09:32)
[2022-10-27] MEDS: FAMOTIDINE 20 MG TABLET PO SCH ×2 (09:33→21:08)
[2022-10-27] MEDS: TOLNAFTATE 1% CREAM 15 GM TUBE TP SCH ×2 (09:34→21:38)
[2022-10-27] MEDS: THIAMINE HCL 100 MG TABLET (FP) PO SCH (21:38)
[2022-10-27] MEDS: MELATONIN 5 MG TABLETS PO SCH (21:38)
[2022-10-28] MEDS: methaDONE 40 MG, methaDONE 20 MG PO SCH (06:08)
[2022-10-28] MEDS: METHOCARBAMOL 500 MG TABLET PO PRN ×3 (06:09→21:09)
[2022-10-28] MEDS: NICOTINE 10 MG CARTRIDGE (INHALER) IH PRN ×5 (06:09→21:10)
[2022-10-28] MEDS: hydrOXYzine PAMOATE 25 MG CAPSULE (FP) PO PRN ×3 (06:09→21:09)
[2022-10-28 06:38] VITALS: RESP 18
[2022-10-28] MEDS: FAMOTIDINE 20 MG TABLET PO SCH ×2 (09:33→21:09)
[2022-10-28] MEDS: PRENATAL VITAMINS W/ FOLIC ACID TABLET (FP) PO SCH (09:33)
[2022-10-28] MEDS: TOLNAFTATE 1% CREAM 15 GM TUBE TP SCH ×2 (09:34→21:10)
[2022-10-28] MEDS: IBUPROFEN 400 MG TABLET (FP) PO PRN (17:11)
[2022-10-28] MEDS: ACETAMINOPHEN 325 MG TABLET (FP) PO PRN (18:26)
[2022-10-28] MEDS: MELATONIN 5 MG TABLETS PO SCH (21:09)
[2022-10-28] MEDS: THIAMINE HCL 100 MG TABLET (FP) PO SCH (21:09)
[2022-10-29] MEDS: methaDONE 40 MG, methaDONE 20 MG PO SCH (06:22)
[2022-10-29] MEDS: hydrOXYzine PAMOATE 25 MG CAPSULE (FP) PO PRN ×4 (06:23→21:08)
[2022-10-29] MEDS: METHOCARBAMOL 500 MG TABLET PO PRN ×3 (06:23→21:08)
[2022-10-29] MEDS: NICOTINE 10 MG CARTRIDGE (INHALER) IH PRN ×5 (06:25→17:03)
[2022-10-29] MEDS: PRENATAL VITAMINS W/ FOLIC ACID TABLET (FP) PO SCH (09:31)
[2022-10-29] MEDS: TOLNAFTATE 1% CREAM 15 GM TUBE TP SCH ×2 (09:32→21:09)
[2022-10-29] MEDS: FAMOTIDINE 20 MG TABLET PO SCH ×2 (09:32→21:08)
[2022-10-29] MEDS: ALBUTEROL SO4 HFA INHALER IH PRN (14:22)
[2022-10-29] MEDS: ACETAMINOPHEN 325 MG TABLET (FP) PO PRN (17:19)
[2022-10-29] MEDS: MELATONIN 5 MG TABLETS PO SCH (21:08)
[2022-10-29] MEDS: THIAMINE HCL 100 MG TABLET (FP) PO SCH (21:08)
[2022-10-30] MEDS: methaDONE 40 MG, methaDONE 20 MG PO SCH (06:38)
[2022-10-30] MEDS: hydrOXYzine PAMOATE 25 MG CAPSULE (FP) PO PRN (06:38)
[2022-10-30] MEDS: METHOCARBAMOL 500 MG TABLET PO PRN ×2 (06:38→21:06)
[2022-10-30] MEDS: NICOTINE 10 MG CARTRIDGE (INHALER) IH PRN ×6 (07:36→21:16)
[2022-10-30] MEDS: FAMOTIDINE 20 MG TABLET PO SCH ×2 (09:34→21:06)
[2022-10-30] MEDS: TOLNAFTATE 1% CREAM 15 GM TUBE TP SCH ×2 (09:34→21:32)
[2022-10-30] MEDS: PRENATAL VITAMINS W/ FOLIC ACID TABLET (FP) PO SCH (09:34)
[2022-10-30] MEDS: COLLOIDAL OATMEAL 1 BAR EACH TP PRN (09:35)
[2022-10-30] MEDS: ACETAMINOPHEN 325 MG TABLET (FP) PO PRN (09:36)
[2022-10-30] MEDS: BUDESONIDE/FORMETEROL FUMARATE 80/4.5 mcg INHALER IH SCH ×2 (14:40→21:32)
[2022-10-30] MEDS: THIAMINE HCL 100 MG TABLET (FP) PO SCH (21:06)
[2022-10-30] MEDS: MELATONIN 5 MG TABLETS PO SCH (21:32)
[2022-10-31] MEDS: hydrOXYzine PAMOATE 25 MG CAPSULE (FP) PO PRN ×3 (05:59→21:06)
[2022-10-31] MEDS: methaDONE 40 MG, methaDONE 20 MG PO SCH (05:59)
[2022-10-31] MEDS: METHOCARBAMOL 500 MG TABLET PO PRN ×3 (06:00→21:06)
[2022-10-31] MEDS: NICOTINE 10 MG CARTRIDGE (INHALER) IH PRN ×6 (06:01→20:00)
[2022-10-31] MEDS: PRENATAL VITAMINS W/ FOLIC ACID TABLET (FP) PO SCH (09:35)
[2022-10-31] MEDS: BUDESONIDE/FORMETEROL FUMARATE 80/4.5 mcg INHALER IH SCH ×2 (09:36→21:07)
[2022-10-31] MEDS: TOLNAFTATE 1% CREAM 15 GM TUBE TP SCH ×2 (09:36→21:07)
[2022-10-31] MEDS: FAMOTIDINE 20 MG TABLET PO SCH ×2 (09:36→21:06)
[2022-10-31] MEDS: MELATONIN 5 MG TABLETS PO SCH (21:06)
[2022-10-31] MEDS: THIAMINE HCL 100 MG TABLET (FP) PO SCH (21:06)
[2022-11-01] MEDS: METHOCARBAMOL 500 MG TABLET PO PRN ×2 (06:28→21:10)
[2022-11-01] MEDS: methaDONE 40 MG, methaDONE 20 MG PO SCH (06:28)
[2022-11-01] MEDS: hydrOXYzine PAMOATE 25 MG CAPSULE (FP) PO PRN ×2 (06:28→21:11)
[2022-11-01] MEDS: NICOTINE 10 MG CARTRIDGE (INHALER) IH PRN ×5 (08:41→21:36)
[2022-11-01] MEDS: FAMOTIDINE 20 MG TABLET PO SCH ×2 (09:40→21:10)
[2022-11-01] MEDS: PRENATAL VITAMINS W/ FOLIC ACID TABLET (FP) PO SCH (09:41)
[2022-11-01] MEDS: BUDESONIDE/FORMETEROL FUMARATE 80/4.5 mcg INHALER IH SCH ×2 (09:41→21:11)
[2022-11-01] MEDS: TOLNAFTATE 1% CREAM 15 GM TUBE TP SCH ×2 (09:41→21:12)
[2022-11-01] MEDS: ACETAMINOPHEN 325 MG TABLET (FP) PO PRN (09:42)
[2022-11-01] MEDS: ALBUTEROL SO4 HFA INHALER IH PRN (11:21)
[2022-11-01] MEDS: THIAMINE HCL 100 MG TABLET (FP) PO SCH (21:10)
[2022-11-01] MEDS: MELATONIN 5 MG TABLETS PO SCH (21:11)
[2022-11-02] MEDS: METHOCARBAMOL 500 MG TABLET PO PRN ×3 (06:29→21:15)
[2022-11-02] MEDS: methaDONE 40 MG, methaDONE 20 MG PO SCH (06:29)
[2022-11-02] MEDS: IBUPROFEN 400 MG TABLET (FP) PO PRN (06:29)
[2022-11-02] MEDS: hydrOXYzine PAMOATE 25 MG CAPSULE (FP) PO PRN ×3 (06:31→21:16)
[2022-11-02] MEDS: NICOTINE 10 MG CARTRIDGE (INHALER) IH PRN ×5 (06:49→17:44)
[2022-11-02] MEDS: PRENATAL VITAMINS W/ FOLIC ACID TABLET (FP) PO SCH (09:31)
[2022-11-02] MEDS: TOLNAFTATE 1% CREAM 15 GM TUBE TP SCH ×2 (09:31→21:17)
[2022-11-02] MEDS: FAMOTIDINE 20 MG TABLET PO SCH ×2 (09:31→21:15)
[2022-11-02] MEDS: BUDESONIDE/FORMETEROL FUMARATE 80/4.5 mcg INHALER IH SCH ×2 (09:31→21:17)
[2022-11-02] MEDS: ALBUTEROL SO4 HFA INHALER IH PRN (09:32)
[2022-11-02] MEDS: ACETAMINOPHEN 325 MG TABLET (FP) PO PRN ×2 (12:04→21:16)
[2022-11-02] MEDS: THIAMINE HCL 100 MG TABLET (FP) PO SCH (21:16)
[2022-11-02] MEDS: MELATONIN 5 MG TABLETS PO SCH (21:17)
[2022-11-03] MEDS: NICOTINE 10 MG CARTRIDGE (INHALER) IH PRN ×7 (02:36→21:31)
[2022-11-03] MEDS: hydrOXYzine PAMOATE 25 MG CAPSULE (FP) PO PRN ×3 (06:24→21:30)
[2022-11-03] MEDS: methaDONE 40 MG, methaDONE 20 MG PO SCH (06:24)
[2022-11-03] MEDS: METHOCARBAMOL 500 MG TABLET PO PRN ×2 (06:24→21:30)
[2022-11-03] MEDS: TOLNAFTATE 1% CREAM 15 GM TUBE TP SCH ×2 (09:43→22:17)
[2022-11-03] MEDS: PRENATAL VITAMINS W/ FOLIC ACID TABLET (FP) PO SCH (09:43)
[2022-11-03] MEDS: BUDESONIDE/FORMETEROL FUMARATE 80/4.5 mcg INHALER IH SCH ×2 (09:43→22:17)
[2022-11-03] MEDS: FAMOTIDINE 20 MG TABLET PO SCH ×2 (09:43→21:30)
[2022-11-03] MEDS: ALBUTEROL SO4 HFA INHALER IH PRN (09:45)
[2022-11-03] MEDS: THIAMINE HCL 100 MG TABLET (FP) PO SCH (21:30)
[2022-11-03] MEDS: MELATONIN 5 MG TABLETS PO SCH (22:17)
[2022-11-04] MEDS: methaDONE 40 MG, methaDONE 20 MG PO SCH (06:07)
[2022-11-04] MEDS: hydrOXYzine PAMOATE 25 MG CAPSULE (FP) PO PRN ×2 (06:12→17:01)
[2022-11-04] MEDS: METHOCARBAMOL 500 MG TABLET PO PRN (06:12)
[2022-11-04] MEDS: NICOTINE 10 MG CARTRIDGE (INHALER) IH PRN ×5 (07:18→17:20)
[2022-11-04] MEDS: PRENATAL VITAMINS W/ FOLIC ACID TABLET (FP) PO SCH (09:29)
[2022-11-04] MEDS: FAMOTIDINE 20 MG TABLET PO SCH ×2 (09:29→22:57)
[2022-11-04] MEDS: ALBUTEROL SO4 HFA INHALER IH PRN ×2 (09:30→17:21)
[2022-11-04] MEDS: BUDESONIDE/FORMETEROL FUMARATE 80/4.5 mcg INHALER IH SCH ×2 (09:31→22:57)
[2022-11-04] MEDS: TOLNAFTATE 1% CREAM 15 GM TUBE TP SCH ×2 (09:36→22:57)
[2022-11-04] MEDS: THIAMINE HCL 100 MG TABLET (FP) PO SCH (22:57)
[2022-11-04] MEDS: MELATONIN 5 MG TABLETS PO SCH (22:57)
[2022-11-05] MEDS: MAG HYDROX/AL HYDROX/SIMETH 30 ML UNIT-DOSE CUP PO PRN (03:49)
[2022-11-05] MEDS ORDERED: methaDONE 40 MG, methaDONE 20 MG PO SCH (06:00)
[2022-11-05] MEDS: NICOTINE 10 MG CARTRIDGE (INHALER) IH PRN ×2 (06:49→09:31)
[2022-11-05] MEDS: hydrOXYzine PAMOATE 25 MG CAPSULE (FP) PO PRN (06:50)
[2022-11-05] MEDS: METHOCARBAMOL 500 MG TABLET PO PRN (06:50)
[2022-11-05 07:07] VITALS: BP 128/71; PULSE 86; TEMP 97.6
[2022-11-05] MEDS: BUDESONIDE/FORMETEROL FUMARATE 80/4.5 mcg INHALER IH SCH (09:30)
[2022-11-05] MEDS: FAMOTIDINE 20 MG TABLET PO SCH (09:30)
[2022-11-05] MEDS: TOLNAFTATE 1% CREAM 15 GM TUBE TP SCH (09:30)
[2022-11-05] MEDS: PRENATAL VITAMINS W/ FOLIC ACID TABLET (FP) PO SCH (09:30)
[2022-11-05] MEDS: ALBUTEROL SO4 HFA INHALER IH PRN (10:05)
== END 2022-11-05 10:32 | disposition home or self-care (01) | DRG 772 ==
LOC: YASAS 13:22 → Y5N 13:23
PROVIDERS: ADMIT Allergy & Immunology; ATTEND Psychiatry & Neurology Pain Medicine
PROC: HZ42ZZZ Group Counseling for Substance Abuse Treatment, Cognitive-Behavioral (ICD-10-PCS; principal; 2022-10-09)
DX: F11.20 Opioid dependence, uncomplicated (principal); F10.20 Alcohol dependence, uncomplicated; F14.20 Cocaine dependence, uncomplicated; F12.20 Cannabis dependence, uncomplicated; F17.210 Nicotine dependence, cigarettes, uncomplicated; F19.280 Other psychoactive substance dependence with psychoactive substance-induced anxiety disorder; F41.9 Anxiety disorder, unspecified; F32.A Depression, unspecified; J45.20 Mild intermittent asthma, uncomplicated; K21.9 Gastro-esophageal reflux disease without esophagitis; M54.50 Low back pain, unspecified; G89.29 Other chronic pain

== ENCOUNTER 2023-02-01 10:46 | Inpatient (IN) | payer OTHER ==
[2023-02-01 11:33] VITALS: BMI 27.4
[2023-02-01] MEDS ORDERED: hydrOXYzine PAMOATE 25 MG CAPSULE (FP) PO PRN (12:38)
[2023-02-01] MEDS ORDERED: ONDANSETRON *ODT* 4 MG TABLET SL PRN (12:38)
[2023-02-01] MEDS ORDERED: NALOXONE HCL 0.4 MG/ML VIAL IM PRN (12:38)
[2023-02-01] MEDS ORDERED: IBUPROFEN 400 MG TABLET (FP) PO PRN (12:38)
[2023-02-01] MEDS ORDERED: LOPERAMIDE HCL 2 MG CAPSULE PO PRN (12:38)
[2023-02-01] MEDS ORDERED: IBUPROFEN 600 MG TABLET (FP) PO PRN (12:38)
[2023-02-01] MEDS ORDERED: guaiFENesin 600 MG TABLET.ER (FP) PO PRN (12:38)
[2023-02-01] MEDS ORDERED: DICYCLOMINE HCL 10 MG CAPSULE PO PRN (12:38)
[2023-02-01] MEDS ORDERED: MAGNESIUM HYDROX 2400MG/30ML ORAL SUSPENSION 30 ML CUP PO PRN (12:38)
[2023-02-01] MEDS ORDERED: BENZONATATE 200 MG CAPSULE PO PRN (12:38)
[2023-02-01] MEDS ORDERED: BISMUTH SUBSALICYLATE 524 MG/30 ML PO PRN (12:38)
[2023-02-01] MEDS ORDERED: BENZOCAINE/MENTHOL (CHLORASEPTIC ) LOZENGE MM PRN (12:38)
[2023-02-01] MEDS ORDERED: POLYETHYLENE GLYCOL (HEALTHYLAX) 3350 17 GM PACKET PO PRN (12:38)
[2023-02-01] MEDS ORDERED: ACETAMINOPHEN 325 MG TABLET (FP) PO PRN (12:38)
[2023-02-01] MEDS ORDERED: NALOXONE HCL (KLOXXADO) 8 MG SPRAY NS PRN (12:38)
[2023-02-01] MEDS ORDERED: LIDOCAINE 5% TOPICAL PATCH TP PRN (13:01)
[2023-02-01] MEDS: BUDESONIDE/FORMETEROL FUMARATE 80/4.5 mcg INHALER IH SCH ×2 (14:20→22:34)
[2023-02-01] MEDS: METHOCARBAMOL 500 MG TABLET PO PRN (19:16)
[2023-02-01] MEDS ORDERED: diazePAM 5 MG TABLET PO ONE (19:29)
[2023-02-01] MEDS: ALBUTEROL SO4 HFA INHALER IH PRN (19:35)
[2023-02-01] MEDS: diazePAM 5 MG TABLET PO SCH (22:34)
[2023-02-01] MEDS: MELATONIN 5 MG TABLETS PO SCH (22:34)
[2023-02-01] MEDS: TOLNAFTATE 1% CREAM 15 GM TUBE TP SCH (22:34)
[2023-02-01] MEDS: LIDOCAINE PATCH REMOVAL MC SCH (22:34)
[2023-02-01] MEDS: THIAMINE HCL 100 MG TABLET (FP) PO SCH (22:35)
[2023-02-02] MEDS: MAG HYDROX/AL HYDROX/SIMETH 30 ML UNIT-DOSE CUP PO PRN ×2 (03:09→22:19)
[2023-02-02] MEDS: diazePAM 5 MG TABLET PO SCH ×4 (05:19→22:19)
[2023-02-02] MEDS: methaDONE HCL 40 MG DISPERSABLE TABLET PO SCH (05:21)
[2023-02-02 09:12] LABS: HEMATOCRIT 37.2 % (35.4-49); HEMOGLOBIN 11.9 GM/dL (11.7-16.9); MCH 25.6 pg (25.7-33.7); MCHC 32.1 g/dl (32.0-35.9); MEAN CELL VOLUME 79.8 fl (80-96); MEAN PLT VOLUME 7.9 fl (7.5-11.1); PLATELET COUNT 276 10^3/uL (134-434); RBC 4.66 M/mm3 (4.00-5.60); RDW 14.8 % (11.9-15.9); WHITE BLOOD COUNT 5.9 K/mm3 (4.0-10.0)
[2023-02-02 09:13] LABS: POTASSIUM 4.6 mmol/L (3.5-5.1)
[2023-02-02 09:16] LABS: ALBUMIN 3.4 g/dl (3.4-5.0); BLOOD UREA NITROGEN 14.6 mg/dL (7-18); CALCIUM 8.8 mg/dL (8.5-10.1)
[2023-02-02 09:21] LABS: BILIRUBIN,TOTAL 0.3 mg/dL (0.2-1); TOT PROT 6.8 g/dl (6.4-8.2)
[2023-02-02] MEDS: PRENATAL VITAMINS W/ FOLIC ACID TABLET (FP) PO SCH (10:28)
[2023-02-02] MEDS: TOLNAFTATE 1% CREAM 15 GM TUBE TP SCH ×2 (10:28→22:22)
[2023-02-02] MEDS: BUDESONIDE/FORMETEROL FUMARATE 80/4.5 mcg INHALER IH SCH ×2 (10:28→22:22)
[2023-02-02] MEDS: METHOCARBAMOL 500 MG TABLET PO PRN ×3 (10:30→22:21)
[2023-02-02] MEDS: diazePAM 5 MG TABLET PO PRN (16:24)
[2023-02-02] MEDS: ALBUTEROL SO4 HFA INHALER IH PRN (16:25)
[2023-02-02] MEDS: MELATONIN 5 MG TABLETS PO SCH (22:19)
[2023-02-02] MEDS: THIAMINE HCL 100 MG TABLET (FP) PO SCH (22:19)
[2023-02-02] MEDS: LIDOCAINE PATCH REMOVAL MC SCH (22:22)
[2023-02-03] MEDS: diazePAM 5 MG TABLET PO SCH ×3 (05:11→22:16)
[2023-02-03] MEDS: METHOCARBAMOL 500 MG TABLET PO PRN ×2 (05:12→17:14)
[2023-02-03] MEDS: methaDONE HCL 40 MG DISPERSABLE TABLET PO SCH (05:12)
[2023-02-03] MEDS: PRENATAL VITAMINS W/ FOLIC ACID TABLET (FP) PO SCH (09:52)
[2023-02-03] MEDS: BUDESONIDE/FORMETEROL FUMARATE 80/4.5 mcg INHALER IH SCH ×2 (09:52→22:16)
[2023-02-03] MEDS: TOLNAFTATE 1% CREAM 15 GM TUBE TP SCH ×2 (09:52→22:16)
[2023-02-03] MEDS: diazePAM 5 MG TABLET PO PRN (17:15)
[2023-02-03] MEDS: LIDOCAINE PATCH REMOVAL MC SCH (21:09)
[2023-02-03] MEDS: THIAMINE HCL 100 MG TABLET (FP) PO SCH (22:16)
[2023-02-03] MEDS: MELATONIN 5 MG TABLETS PO SCH (22:16)
[2023-02-04] MEDS: methaDONE HCL 40 MG DISPERSABLE TABLET PO SCH (05:27)
[2023-02-04] MEDS: diazePAM 5 MG TABLET PO SCH ×2 (05:27→17:30)
[2023-02-04] MEDS: PRENATAL VITAMINS W/ FOLIC ACID TABLET (FP) PO SCH (10:22)
[2023-02-04] MEDS: BUDESONIDE/FORMETEROL FUMARATE 80/4.5 mcg INHALER IH SCH ×2 (10:23→22:10)
[2023-02-04] MEDS: TOLNAFTATE 1% CREAM 15 GM TUBE TP SCH ×2 (10:23→22:11)
[2023-02-04] MEDS: METHOCARBAMOL 500 MG TABLET PO PRN ×2 (14:59→22:11)
[2023-02-04] MEDS: diazePAM 5 MG TABLET PO PRN (14:59)
[2023-02-04] MEDS: LIDOCAINE PATCH REMOVAL MC SCH (22:09)
[2023-02-04] MEDS: MELATONIN 5 MG TABLETS PO SCH (22:10)
[2023-02-04] MEDS: THIAMINE HCL 100 MG TABLET (FP) PO SCH (22:11)
[2023-02-05] MEDS: methaDONE HCL 40 MG DISPERSABLE TABLET PO SCH (05:29)
[2023-02-05] MEDS ORDERED: diazePAM 5 MG TABLET PO ONE (06:00)
[2023-02-05 09:16] VITALS: BP 109/66; PULSE 74; RESP 17; TEMP 97.5
[2023-02-05] MEDS: TOLNAFTATE 1% CREAM 15 GM TUBE TP SCH (09:45)
[2023-02-05] MEDS: PRENATAL VITAMINS W/ FOLIC ACID TABLET (FP) PO SCH (09:45)
[2023-02-05] MEDS: BUDESONIDE/FORMETEROL FUMARATE 80/4.5 mcg INHALER IH SCH (09:45)
== END 2023-02-05 11:36 | disposition other institution (70) | DRG 773 ==
LOC: YASAS 10:46 → Y3N 13:57
PROVIDERS: ADMIT Allergy & Immunology; ATTEND Surgery
PROC: HZ2ZZZZ Detoxification Services for Substance Abuse Treatment (ICD-10-PCS; principal; 2023-02-01)
DX: F10.230 Alcohol dependence with withdrawal, uncomplicated (principal); F11.20 Opioid dependence, uncomplicated; F14.20 Cocaine dependence, uncomplicated; F12.20 Cannabis dependence, uncomplicated; F17.210 Nicotine dependence, cigarettes, uncomplicated; F19.282 Other psychoactive substance dependence with psychoactive substance-induced sleep disorder; F19.280 Other psychoactive substance dependence with psychoactive substance-induced anxiety disorder; F41.9 Anxiety disorder, unspecified; G47.00 Insomnia, unspecified; J45.909 Unspecified asthma, uncomplicated; K21.9 Gastro-esophageal reflux disease without esophagitis; Z91.410 Personal history of adult physical and sexual abuse; Z59.01 Sheltered homelessness; Z56.0 Unemployment, unspecified
CPT/HCPCS: 36415; 80053; 85027; 86780; 87635; 87811; Q0162

== ENCOUNTER 2023-02-05 11:33 | Inpatient (IN) | payer OTHER ==
[2023-02-05] MEDS ORDERED: METHOCARBAMOL 500 MG TABLET PO PRN (13:49)
[2023-02-05] MEDS ORDERED: ACETAMINOPHEN 325 MG TABLET (FP) PO PRN (13:49)
[2023-02-05] MEDS ORDERED: IBUPROFEN 600 MG TABLET (FP) PO PRN (13:49)
[2023-02-05] MEDS ORDERED: BENZONATATE 200 MG CAPSULE PO PRN (13:49)
[2023-02-05] MEDS ORDERED: IBUPROFEN 400 MG TABLET (FP) PO PRN (13:49)
[2023-02-05] MEDS ORDERED: guaiFENesin 600 MG TABLET.ER (FP) PO PRN (13:49)
[2023-02-05] MEDS ORDERED: AMMONIUM LACTATE 12% LOTION 225 GM BOTTLE TP PRN (13:49)
[2023-02-05] MEDS ORDERED: NALOXONE HCL 0.4 MG/ML VIAL IVPUSH PRN (13:49)
[2023-02-05] MEDS ORDERED: BENZOCAINE/MENTHOL (CHLORASEPTIC ) LOZENGE MM PRN (13:49)
[2023-02-05] MEDS ORDERED: MAGNESIUM HYDROX 2400MG/30ML ORAL SUSPENSION 30 ML CUP PO PRN (13:49)
[2023-02-05] MEDS ORDERED: LOPERAMIDE HCL 2 MG CAPSULE PO PRN (13:49)
[2023-02-05] MEDS ORDERED: POLYETHYLENE GLYCOL (HEALTHYLAX) 3350 17 GM PACKET PO PRN (13:49)
[2023-02-05] MEDS ORDERED: NALOXONE HCL (KLOXXADO) 8 MG SPRAY NS PRN (13:49)
[2023-02-05] MEDS ORDERED: NICOTINE 10 MG CARTRIDGE (INHALER) IH PRN (13:49)
[2023-02-05] MEDS ORDERED: COLLOIDAL OATMEAL 1 BAR EACH TP PRN (13:49)
[2023-02-05] MEDS ORDERED: ALBUTEROL SO4 HFA INHALER IH PRN (13:52)
[2023-02-05] MEDS: ACAMPROSATE CALCIUM 333 MG TABLET.DR PO SCH ×2 (14:56→21:28)
[2023-02-05] MEDS: BUDESONIDE/FORMETEROL FUMARATE 80/4.5 mcg INHALER IH SCH ×2 (14:56→21:28)
[2023-02-05] MEDS: MELATONIN 5 MG TABLETS PO SCH (21:28)
[2023-02-05] MEDS: THIAMINE HCL 100 MG TABLET (FP) PO SCH (21:28)
[2023-02-05] MEDS: hydrOXYzine PAMOATE 25 MG CAPSULE (FP) PO PRN (21:28)
[2023-02-05] MEDS: TOLNAFTATE 1% CREAM 15 GM TUBE TP SCH (21:29)
[2023-02-06] MEDS: methaDONE HCL 40 MG DISPERSABLE TABLET PO SCH (06:12)
[2023-02-06] MEDS: PRENATAL VITAMINS W/ FOLIC ACID TABLET (FP) PO SCH (09:51)
[2023-02-06] MEDS: BUDESONIDE/FORMETEROL FUMARATE 80/4.5 mcg INHALER IH SCH ×2 (09:51→21:30)
[2023-02-06] MEDS: hydrOXYzine PAMOATE 25 MG CAPSULE (FP) PO PRN (09:52)
[2023-02-06] MEDS: TOLNAFTATE 1% CREAM 15 GM TUBE TP SCH ×2 (09:59→21:31)
[2023-02-06] MEDS: ACAMPROSATE CALCIUM 333 MG TABLET.DR PO SCH ×2 (13:54→21:30)
[2023-02-06] MEDS: MELATONIN 5 MG TABLETS PO SCH (21:30)
[2023-02-06] MEDS: THIAMINE HCL 100 MG TABLET (FP) PO SCH (21:31)
[2023-02-06] MEDS ORDERED: MIRTAZAPINE 15 MG TABLET (FP) PO SCH (22:00)
[2023-02-07] MEDS: MAG HYDROX/AL HYDROX/SIMETH 30 ML UNIT-DOSE CUP PO PRN ×2 (02:03→09:05)
[2023-02-07] MEDS: hydrOXYzine PAMOATE 25 MG CAPSULE (FP) PO PRN ×2 (02:03→06:36)
[2023-02-07] MEDS: methaDONE HCL 40 MG DISPERSABLE TABLET PO SCH (06:35)
[2023-02-07] MEDS: NICOTINE POLACRILEX 2 MG GUM BUC PRN ×2 (06:36→14:12)
[2023-02-07] MEDS: ACAMPROSATE CALCIUM 333 MG TABLET.DR PO SCH ×2 (06:36→13:03)
[2023-02-07 07:14] VITALS: BP 113/79; PULSE 95; RESP 18; TEMP 96.9
[2023-02-07] MEDS: BUDESONIDE/FORMETEROL FUMARATE 80/4.5 mcg INHALER IH SCH (10:13)
[2023-02-07] MEDS: PRENATAL VITAMINS W/ FOLIC ACID TABLET (FP) PO SCH (10:13)
[2023-02-07] MEDS: TOLNAFTATE 1% CREAM 15 GM TUBE TP SCH (10:13)
== END 2023-02-07 14:34 | disposition left against medical advice (07) | DRG 770 ==
LOC: YASAS 11:33 → Y3E 11:35
PROVIDERS: ADMIT Allergy & Immunology; ATTEND Psychiatry & Neurology Pain Medicine
PROC: HZ42ZZZ Group Counseling for Substance Abuse Treatment, Cognitive-Behavioral (ICD-10-PCS; principal; 2023-02-05)
DX: F10.20 Alcohol dependence, uncomplicated (principal); F14.20 Cocaine dependence, uncomplicated; F12.20 Cannabis dependence, uncomplicated; F17.210 Nicotine dependence, cigarettes, uncomplicated; F19.280 Other psychoactive substance dependence with psychoactive substance-induced anxiety disorder; F19.282 Other psychoactive substance dependence with psychoactive substance-induced sleep disorder; F41.9 Anxiety disorder, unspecified; K21.9 Gastro-esophageal reflux disease without esophagitis; R79.89 Other specified abnormal findings of blood chemistry; F91.8 Other conduct disorders; Z91.199 Patient's noncompliance with other medical treatment and regimen due to unspecified reason
CPT/HCPCS: 36415; 82140; 86803

== ENCOUNTER 2024-09-27 13:54 | Inpatient (IN) | payer OTHER ==
[2024-09-27 14:12] VITALS: BMI 21.2
[2024-09-27] MEDS ORDERED: DICYCLOMINE HCL 10 MG CAPSULE PO PRN (14:21)
[2024-09-27] MEDS ORDERED: IBUPROFEN 400 MG TABLET (FP) PO PRN (14:21)
[2024-09-27] MEDS ORDERED: LOPERAMIDE HCL 2 MG CAPSULE PO PRN (14:21)
[2024-09-27] MEDS ORDERED: guaiFENesin 600 MG TABLET.ER (FP) PO PRN (14:21)
[2024-09-27] MEDS ORDERED: ACETAMINOPHEN 325 MG TABLET (FP) PO PRN (14:21)
[2024-09-27] MEDS ORDERED: MAG HYDROX/AL HYDROX/SIMETH 30 ML UNIT-DOSE CUP PO PRN (14:21)
[2024-09-27] MEDS ORDERED: BENZONATATE 200 MG CAPSULE PO PRN (14:21)
[2024-09-27] MEDS ORDERED: BISMUTH SUBSALICYLATE 262 MG/15 ML BTL PO PRN (14:21)
[2024-09-27] MEDS ORDERED: NALOXONE (NARCAN) HCL 4 MG/0.1 ML SPRAY NS PRN (14:21)
[2024-09-27] MEDS ORDERED: POLYETHYLENE GLYCOL (HEALTHYLAX) 3350 17 GM PACKET PO PRN (14:21)
[2024-09-27] MEDS ORDERED: BENZOCAINE/MENTHOL (CHLORASEPTIC ) LOZENGE MM PRN (14:21)
[2024-09-27] MEDS ORDERED: ONDANSETRON *ODT* 4 MG TABLET SL PRN (14:21)
[2024-09-27] MEDS ORDERED: MAGNESIUM HYDROX 2400MG/30ML ORAL SUSPENSION 30 ML CUP PO PRN (14:21)
[2024-09-27] MEDS ORDERED: ALBUTEROL SO4 HFA INHALER IH PRN (14:24)
[2024-09-27] MEDS: diazePAM 5 MG TABLET PO SCH ×2 (18:47→18:54)
[2024-09-27] MEDS: NICOTINE 7 MG/24 HOURS TOPICAL PATCH TD SCH (18:55)
[2024-09-27] MEDS: cloNIDine HCL 0.1 MG TABLET PO SCH (18:55)
[2024-09-27] MEDS: PRENATAL VITAMINS W/ FOLIC ACID TABLET (FP) PO SCH (18:55)
[2024-09-27] MEDS: methaDONE HCL 10 MG TABLET PO PRN (19:03)
[2024-09-27] MEDS: methaDONE HCL 10 MG TABLET PO ONE ×2 (19:05)
[2024-09-27] MEDS: MELATONIN 5 MG TABLETS PO SCH (23:01)
[2024-09-27] MEDS: THIAMINE 100 MG TABLET PO SCH (23:01)
[2024-09-27] MEDS: BUDESONIDE/FORMETEROL FUMARATE 80/4.5 mcg INHALER IH SCH (23:01)
[2024-09-28] MEDS: IBUPROFEN 600 MG TABLET (FP) PO PRN (04:04)
[2024-09-28] MEDS: METHOCARBAMOL 500 MG TABLET PO PRN (04:06)
[2024-09-28] MEDS: methaDONE 40 MG, methaDONE 10 MG PO ONE (10:01)
[2024-09-28 11:36] LABS: POTASSIUM 4.6 mmol/L (3.5-5.1)
[2024-09-28 11:40] LABS: BLOOD UREA NITROGEN 18.2 mg/dL (7-18)
[2024-09-28 11:42] LABS: ALBUMIN 3.4 g/dl (3.4-5.0); CALCIUM 8.8 mg/dL (8.5-10.1)
[2024-09-28 11:45] LABS: BILIRUBIN,TOTAL 0.4 mg/dL (0.2-1); TOT PROT 7.6 g/dl (6.4-8.2)
[2024-09-28 11:46] LABS: CREATININE 0.9 mg/dL (0.55-1.3)
[2024-09-28 12:20] LABS: HEMATOCRIT 34.6 % (35.4-49); HEMOGLOBIN 11.1 GM/dL (11.7-16.9); MCH 24.8 pg (25.7-33.7); MCHC 32.1 g/dl (32.0-35.9); MEAN CELL VOLUME 77.4 fl (80-96); PLATELET COUNT 361 10^3/uL (134-434); RBC 4.48 M/mm3 (4.00-5.60); RDW 15.1 % (11.9-15.9); WHITE BLOOD COUNT 4.7 K/mm3 (4.0-10.0)
[2024-09-28] MEDS: BACITRACIN 0.9 GM PACKET TP ONE (18:18)
[2024-09-28] MEDS: MIRTAZAPINE 15 MG TABLET (FP) PO SCH (22:25)
[2024-09-29] MEDS ORDERED: cloNIDine HCL 0.1 MG TABLET PO PRN
[2024-09-29] MEDS: diazePAM 5 MG TABLET PO SCH (05:24)
[2024-09-29] MEDS: methaDONE 40 MG, methaDONE 20 MG PO ONE (10:29)
[2024-09-29] MEDS: diazePAM 5 MG TABLET PO PRN (10:30)
[2024-09-30] MEDS: diazePAM 5 MG TABLET PO SCH (05:28)
[2024-09-30] MEDS: methaDONE 40 MG, methaDONE 30 MG PO ONE (09:48)
[2024-09-30] MEDS: hydrOXYzine PAMOATE 25 MG CAPSULE (FP) PO PRN (22:47)
[2024-10-01 05:58] VITALS: BP 100/61; PULSE 90; RESP 17; TEMP 98.7
[2024-10-01] MEDS: diazePAM 5 MG TABLET PO ONE (06:06)
[2024-10-01] MEDS ORDERED: methaDONE HCL 40 MG DISPERSABLE TABLET PO ONE (10:00)
[2024-10-02] MEDS ORDERED: methaDONE 80 MG, methaDONE 10 MG PO ONE (10:00)
== END 2024-10-01 07:52 | disposition home or self-care (01) | DRG 773 ==
LOC: YASAS 13:54 → Y3N 17:30
PROVIDERS: ADMIT Allergy & Immunology; ATTEND Allergy & Immunology
PROC: HZ2ZZZZ Detoxification Services for Substance Abuse Treatment (ICD-10-PCS; principal; 2024-09-27)
DX: F11.23 Opioid dependence with withdrawal (principal); F10.230 Alcohol dependence with withdrawal, uncomplicated; F14.20 Cocaine dependence, uncomplicated; F12.20 Cannabis dependence, uncomplicated; F17.210 Nicotine dependence, cigarettes, uncomplicated; J45.909 Unspecified asthma, uncomplicated
CPT/HCPCS: 36415; 80053; 80305; 80307; 85027; 86780; 93005; 93010